=== PATIENT | female | born 1960 | race African-American/Black ===

== ENCOUNTER 2017-05-16 20:23 | Inpatient (IN) | payer OTHER ==
[2017-05-16 22:20] LABS: ADD MAN DIFF? NO
[2017-05-16 22:22] LABS: WHITE BLOOD COUNT 5.5 10^3/ul (4.8-10.8)
[2017-05-16 22:22] LABS: BASOPHILS % 0.7 % (0.0-2.0); EOSINOPHILS % 0.7 % (0.0-7.0); HEMATOCRIT 44.7 % (37.0-47.0); HEMOGLOBIN 13.9 g/dl (12.0-16.0); LYMPHOCYTES # 1.2 10^3/ul (0.8-2.9); LYMPHOCYTES % 21.3 % (15.0-51.0); MEAN CORPUSCULAR HEMOGLOBIN 26.8 pg (29.0-33.0); MEAN CORPUSCULAR HGB CONC 31.1 g/dl (32.0-37.0); MEAN CORPUSCULAR VOLUME 86.1 fl (82.0-101.0); MONOCYTE # 0.8 10^3/ul (0.3-0.9); MONOCYTES % 13.9 % (0.0-11.0); NEUTROPHIL # 3.4 10^3/ul (1.6-7.5); PLATELET COUNT 192 10^3/UL (140-415); RED BLOOD COUNT 5.19 10^6/ul (4.20-5.40); RED CELL DISTRIBUTION WIDTH 17.5 % (11.5-14.5)
[2017-05-16 23:03] LABS: ANION GAP 18 (8-16); BLOOD UREA NITROGEN 28 mg/dl (7-20); CALCIUM 9.7 mg/dl (8.4-10.2); CARBON DIOXIDE 29 mmol/L (21-31); CHLORIDE 99 mmol/L (97-110); CREATININE 1.46 mg/dl (0.44-1.00); GLUCOSE 102 mg/dl (70-220); POTASSIUM 4.4 mmol/L (3.5-5.1); SODIUM 142 mmol/L (135-144)
[2017-05-16] MEDS: ONDANSETRON 4 MG INJ IV (23:12)
[2017-05-16] MEDS: morphine 4 MG/ML VIAL IV (23:12)
[2017-05-16 23:15] LABS: B-TYPE NATRIURETIC PEPTIDE 13600 PG/ML (0-125); TROPONIN-I 0.016 ng/ml (0.00-0.12)
[2017-05-17] MEDS ORDERED: ACETAMINOPHEN 325 MG TAB PO (02:30)
[2017-05-17] MEDS ORDERED: ALBUTEROL/IPRATROPIUM (NEB) 3 ML AMP HHN (02:30)
[2017-05-17] MEDS ORDERED: CEPASTAT LOZENGE MT (02:30)
[2017-05-17] MEDS ORDERED: NACL 0.9% 3 ML SYG IV (02:30)
[2017-05-17] MEDS: morphine 2 MG INJ IV ×2 (02:42→23:16)
[2017-05-17] MEDS: LORAZEPAM 0.5 MG TAB PO ×2 (03:37→20:25)
[2017-05-17] MEDS: BUMETANIDE 0.5 MG TAB PO (06:22)
[2017-05-17 06:38] LABS: ADD MAN DIFF? NO
[2017-05-17 06:42] LABS: WHITE BLOOD COUNT 4.6 10^3/ul (4.8-10.8)
[2017-05-17 06:42] LABS: BASOPHILS % 0.7 % (0.0-2.0); EOSINOPHILS # 0.1 10^3/ul (0.0-0.5); EOSINOPHILS % 1.1 % (0.0-7.0); HEMATOCRIT 42.4 % (37.0-47.0); HEMOGLOBIN 12.9 g/dl (12.0-16.0); LYMPHOCYTES % 21.5 % (15.0-51.0); MEAN CORPUSCULAR HGB CONC 30.4 g/dl (32.0-37.0); MEAN CORPUSCULAR VOLUME 88.7 fl (82.0-101.0); MEAN PLATELET VOLUME 10.7 fl (7.4-10.4); MONOCYTE # 0.7 10^3/ul (0.3-0.9); MONOCYTES % 15.4 % (0.0-11.0); NEUTROPHIL # 2.8 10^3/ul (1.6-7.5); NEUTROPHILS % 61.1 % (39.0-77.0); PLATELET COUNT 166 10^3/UL (140-415); RED BLOOD COUNT 4.78 10^6/ul (4.20-5.40); RED CELL DISTRIBUTION WIDTH 17.2 % (11.5-14.5)
[2017-05-17 07:11] LABS: ALANINE AMINOTRANSFERASE 43 IU/L (13-69); ALBUMIN/GLOBULIN RATIO 1.66; ALKALINE PHOSPHATASE 77 IU/L (42-121); ANION GAP 14 (8-16); ASPARTATE AMINO TRANSFERASE 32 IU/L (15-46); BILIRUBIN,INDIRECT 1.2 mg/dl (0-1.1); BILIRUBIN,TOTAL 1.2 mg/dl (0.2-1.3); BLOOD UREA NITROGEN 28 mg/dl (7-20); CALCIUM 9.3 mg/dl (8.4-10.2); CARBON DIOXIDE 33 mmol/L (21-31); CHLORIDE 100 mmol/L (97-110); CREATININE 1.41 mg/dl (0.44-1.00); GLUCOSE 95 mg/dl (70-220); POTASSIUM 4.2 mmol/L (3.5-5.1); SODIUM 143 mmol/L (135-144); TOTAL PROTEIN 6.4 g/dl (6.1-8.1)
[2017-05-17] MEDS: SPIRONOLACTONE 25 MG TAB PO (08:27)
[2017-05-17] MEDS: ASPIRIN 81 MG TAB PO (08:30)
[2017-05-17] MEDS: HEPARIN 5,000 UNIT/0.5 ML VIAL SC ×2 (08:33→20:39)
[2017-05-17] MEDS ORDERED: BUMETANIDE 1 MG TAB NGT (09:00)
[2017-05-17] MEDS ORDERED: BUMETANIDE 0.5 MG TAB NGT (09:00)
[2017-05-17] MEDS: METHYLPREDNISOLONE 40 MG INJ IV (09:22)
[2017-05-17 16:17] LABS: CREATINE KINASE 72 IU/L (23-200)
[2017-05-17 16:30] LABS: CK INDEX 0.9; CK-MB 0.62 ng/ml (0.0-2.4)
[2017-05-17 16:37] LABS: TROPONIN-I < 0.012 ng/ml (0.00-0.12)
[2017-05-17] MEDS: FUROSEMIDE 20 MG INJ IV (17:37)
[2017-05-17] MEDS: morphine LIQ (10 MG/5 ML) CUP PO (19:40)
[2017-05-17] MEDS ORDERED: [UNRECOGNIZED DRUG - OTHER] XX (21:00)
[2017-05-17] MEDS ORDERED: SACUBITRIL XX (21:00)
[2017-05-17] MEDS ORDERED: VALSARTAN XX (21:00)
[2017-05-18] MEDS: FUROSEMIDE 20 MG INJ IV ×2 (06:26→17:15)
[2017-05-18 07:17] LABS: ADD MAN DIFF? NO
[2017-05-18 07:22] LABS: WHITE BLOOD COUNT 8.7 10^3/ul (4.8-10.8)
[2017-05-18 07:22] LABS: ABNORMAL IP MESSAGE 1; BASOPHILS % 0.1 % (0.0-2.0); HEMATOCRIT 42.5 % (37.0-47.0); LYMPHOCYTES # 0.5 10^3/ul (0.8-2.9); LYMPHOCYTES % 6.1 % (15.0-51.0); MEAN CORPUSCULAR HEMOGLOBIN 26.6 pg (29.0-33.0); MEAN CORPUSCULAR HGB CONC 30.6 g/dl (32.0-37.0); MEAN CORPUSCULAR VOLUME 87.1 fl (82.0-101.0); MEAN PLATELET VOLUME 10.6 fl (7.4-10.4); MONOCYTE # 0.7 10^3/ul (0.3-0.9); MONOCYTES % 7.6 % (0.0-11.0); NEUTROPHIL # 7.5 10^3/ul (1.6-7.5); NEUTROPHILS % 85.7 % (39.0-77.0); PLATELET COUNT 184 10^3/UL (140-415); RED BLOOD COUNT 4.88 10^6/ul (4.20-5.40); RED CELL DISTRIBUTION WIDTH 17.4 % (11.5-14.5)
[2017-05-18 07:34] LABS: POSITIVE DIFF @See below
[2017-05-18 07:45] LABS: ANION GAP 15 (8-16); BLOOD UREA NITROGEN 30 mg/dl (7-20); CALCIUM 9.4 mg/dl (8.4-10.2); CARBON DIOXIDE 33 mmol/L (21-31); CHLORIDE 97 mmol/L (97-110); CREATININE 1.29 mg/dl (0.44-1.00); GLUCOSE 115 mg/dl (70-220); MAGNESIUM 2.3 mg/dl (1.7-2.5); PHOSPHORUS 4.1 mg/dl (2.5-4.9); SODIUM 140 mmol/L (135-144)
[2017-05-18] MEDS: ASPIRIN 81 MG TAB PO (09:14)
[2017-05-18] MEDS: SPIRONOLACTONE 25 MG TAB PO (09:14)
[2017-05-18] MEDS: [UNRECOGNIZED DRUG - REMARK] XX ×2 (09:15→17:04)
[2017-05-18] MEDS: HEPARIN 5,000 UNIT/0.5 ML VIAL SC ×2 (09:37→21:09)
[2017-05-18 13:31] LABS: ADD UMIC NO; UR ASCORBIC ACID 40 mg/dL (NEGATIVE); UR BILIRUBIN (Dip) NEGATIVE (NEGATIVE); UR BLOOD (Dip) NEGATIVE (NEGATIVE); UR CLARITY CLEAR (CLEAR); UR COLOR YELLOW (YELLOW); UR GLUCOSE (Dip) NEGATIVE (NEGATIVE); UR KETONES (Dip) NEGATIVE (NEGATIVE); UR LEUKOCYTE ESTERASE (Dip) NEGATIVE Leu/ul (NEGATIVE); UR NITRITE (Dip) NEGATIVE (NEGATIVE); UR SPECIFIC GRAVITY (Dip) 1.015 (1.003-1.030); UR TOTAL PROTEIN (Dip) NEGATIVE (NEGATIVE); UR UROBILINOGEN (Dip) NEGATIVE (NEGATIVE)
[2017-05-18 13:37] LABS: CREATININE,URINE RANDOM 147.87 mg/dl (20-320)
[2017-05-18 13:45] LABS: SODIUM,URINE RANDOM < 13 mmol/L (30-90)
[2017-05-18] MEDS: ONDANSETRON 4 MG INJ IV (18:57)
[2017-05-18] MEDS: morphine 2 MG INJ IV (18:57)
[2017-05-18] MEDS: LORAZEPAM 2 MG INJ IV (21:29)
[2017-05-19] MEDS: [UNRECOGNIZED DRUG - REMARK] XX ×2 (00:30→08:30)
[2017-05-19] MEDS: FUROSEMIDE 20 MG INJ IV ×4 (06:26→21:26)
[2017-05-19] MEDS: morphine 2 MG INJ IV (06:28)
[2017-05-19 08:12] LABS: ADD MAN DIFF? NO
[2017-05-19 08:14] LABS: WHITE BLOOD COUNT 6.1 10^3/ul (4.8-10.8)
[2017-05-19 08:14] LABS: BASOPHILS % 0.5 % (0.0-2.0); EOSINOPHILS % 0.5 % (0.0-7.0); HEMATOCRIT 42.2 % (37.0-47.0); HEMOGLOBIN 12.8 g/dl (12.0-16.0); LYMPHOCYTES # 1.3 10^3/ul (0.8-2.9); LYMPHOCYTES % 20.7 % (15.0-51.0); MEAN CORPUSCULAR HEMOGLOBIN 26.8 pg (29.0-33.0); MEAN CORPUSCULAR HGB CONC 30.3 g/dl (32.0-37.0); MEAN CORPUSCULAR VOLUME 88.3 fl (82.0-101.0); MEAN PLATELET VOLUME 11.1 fl (7.4-10.4); MONOCYTE # 0.6 10^3/ul (0.3-0.9); MONOCYTES % 10.6 % (0.0-11.0); NEUTROPHIL # 4.1 10^3/ul (1.6-7.5); NEUTROPHILS % 67.5 % (39.0-77.0); PLATELET COUNT 194 10^3/UL (140-415); RED BLOOD COUNT 4.78 10^6/ul (4.20-5.40); RED CELL DISTRIBUTION WIDTH 17.7 % (11.5-14.5)
[2017-05-19 08:46] LABS: ANION GAP 17 (8-16); BLOOD UREA NITROGEN 30 mg/dl (7-20); CALCIUM 9.4 mg/dl (8.4-10.2); CARBON DIOXIDE 29 mmol/L (21-31); CHLORIDE 98 mmol/L (97-110); CREATININE 1.22 mg/dl (0.44-1.00); GLUCOSE 87 mg/dl (70-220); MAGNESIUM 2.4 mg/dl (1.7-2.5); PHOSPHORUS 3.7 mg/dl (2.5-4.9); POTASSIUM 4.3 mmol/L (3.5-5.1); SODIUM 140 mmol/L (135-144)
[2017-05-19] MEDS: ASPIRIN 81 MG TAB PO (09:16)
[2017-05-19] MEDS: SPIRONOLACTONE 25 MG TAB PO (09:17)
[2017-05-19] MEDS: HEPARIN 5,000 UNIT/0.5 ML VIAL SC ×2 (09:19→21:42)
[2017-05-19 14:07] LABS: CREATININE, RANDOM URINE 167 mg/dL (20-320); MICROALBUMIN 2.6 mg/dL; MICROALBUMIN/CREATININE RATIO 16 (<30)
[2017-05-19] MEDS: Sacubitril/Valsartan (Entresto 24 mg-26 mg Tablet) PO ×2 (16:47→21:00)
[2017-05-19] MEDS: SOD CHLORIDE 0.9% 250 ML IV (23:17)
[2017-05-19] MEDS: LORAZEPAM 2 MG INJ IV (23:18)
[2017-05-20] MEDS: LORAZEPAM 2 MG INJ IV ×2 (00:23)
[2017-05-20] MEDS: BUMETANIDE 0.5 MG TAB PO ×2 (06:12→11:01)
[2017-05-20 07:48] LABS: ADD MAN DIFF? NO
[2017-05-20 07:52] LABS: BASOPHILS % 0.9 % (0.0-2.0); EOSINOPHILS # 0.1 10^3/ul (0.0-0.5); EOSINOPHILS % 1.6 % (0.0-7.0); HEMATOCRIT 39.9 % (37.0-47.0); HEMOGLOBIN 12.2 g/dl (12.0-16.0); LYMPHOCYTES % 23.5 % (15.0-51.0); MEAN CORPUSCULAR HEMOGLOBIN 26.9 pg (29.0-33.0); MEAN CORPUSCULAR HGB CONC 30.6 g/dl (32.0-37.0); MEAN CORPUSCULAR VOLUME 88.1 fl (82.0-101.0); MEAN PLATELET VOLUME 10.6 fl (7.4-10.4); MONOCYTE # 0.7 10^3/ul (0.3-0.9); NEUTROPHIL # 2.4 10^3/ul (1.6-7.5); NEUTROPHILS % 56.5 % (39.0-77.0); PLATELET COUNT 175 10^3/UL (140-415); RED BLOOD COUNT 4.53 10^6/ul (4.20-5.40); RED CELL DISTRIBUTION WIDTH 17.4 % (11.5-14.5)
[2017-05-20 07:52] LABS: WHITE BLOOD COUNT 4.3 10^3/ul (4.8-10.8)
[2017-05-20 08:17] LABS: ANION GAP 15 (8-16); BLOOD UREA NITROGEN 28 mg/dl (7-20); CALCIUM 8.8 mg/dl (8.4-10.2); CARBON DIOXIDE 31 mmol/L (21-31); CHLORIDE 98 mmol/L (97-110); CREATININE 1.27 mg/dl (0.44-1.00); GLUCOSE 100 mg/dl (70-220); MAGNESIUM 2.1 mg/dl (1.7-2.5); PHOSPHORUS 3.6 mg/dl (2.5-4.9); SODIUM 140 mmol/L (135-144)
[2017-05-20] MEDS: ASPIRIN 81 MG TAB PO (10:30)
[2017-05-20] MEDS: SPIRONOLACTONE 25 MG TAB PO (10:31)
[2017-05-20] MEDS: Sacubitril/Valsartan (Entresto 24 mg-26 mg Tablet) PO (10:32)
[2017-05-20] MEDS: HEPARIN 5,000 UNIT/0.5 ML VIAL SC (11:05)
== END 2017-05-20 13:15 | disposition home or self-care (01) | DRG 291 ==
LOC: TEL 05-18 00:15 → E/R 20:23 → TEL 23:31
DX: I13.0 Hypertensive heart and chronic kidney disease with heart failure and stage 1 through stage 4 chronic kidney disease, or unspecified chronic kidney disease (principal); I50.23 Acute on chronic systolic (congestive) heart failure; N17.9 Acute kidney failure, unspecified; I95.9 Hypotension, unspecified; I27.20 Pulmonary hypertension, unspecified; I42.9 Cardiomyopathy, unspecified; I07.1 Rheumatic tricuspid insufficiency; N18.9 Chronic kidney disease, unspecified; J44.9 Chronic obstructive pulmonary disease, unspecified; I34.0 Nonrheumatic mitral (valve) insufficiency; I35.1 Nonrheumatic aortic (valve) insufficiency; Z95.810 Presence of automatic (implantable) cardiac defibrillator; Z87.891 Personal history of nicotine dependence
CPT/HCPCS: 36415; 71045; 80048; 80053; 81003; 82043; 82550; 82553; 83735; 83880; 84100; 84155; 84300; 84484; 85025; 87400; 93005; 93306; 94060; 94640; 94726; 94729; 96374; 96375; 99285-25; J1940

== ENCOUNTER 2017-06-14 10:37 | Inpatient (IN) | payer OTHER ==
[2017-06-14] MEDS: ALBUTEROL 0.5% (NEB) 2.5 MG/0.5 ML AMP INH (11:25)
[2017-06-14 11:39] LABS: ADD MAN DIFF? NO
[2017-06-14 11:42] LABS: WHITE BLOOD COUNT 5.1 10^3/ul (4.8-10.8)
[2017-06-14 11:42] LABS: BASOPHILS % 0.8 % (0.0-2.0); EOSINOPHILS # 0.1 10^3/ul (0.0-0.5); EOSINOPHILS % 1.4 % (0.0-7.0); HEMATOCRIT 46.6 % (37.0-47.0); HEMOGLOBIN 14.6 g/dl (12.0-16.0); LYMPHOCYTES # 0.9 10^3/ul (0.8-2.9); LYMPHOCYTES % 18.4 % (15.0-51.0); MEAN CORPUSCULAR HEMOGLOBIN 27.1 pg (29.0-33.0); MEAN CORPUSCULAR HGB CONC 31.3 g/dl (32.0-37.0); MEAN CORPUSCULAR VOLUME 86.5 fl (82.0-101.0); MEAN PLATELET VOLUME 10.7 fl (7.4-10.4); MONOCYTE # 0.7 10^3/ul (0.3-0.9); MONOCYTES % 13.1 % (0.0-11.0); NEUTROPHIL # 3.4 10^3/ul (1.6-7.5); NEUTROPHILS % 66.1 % (39.0-77.0); PLATELET COUNT 244 10^3/UL (140-415); RED BLOOD COUNT 5.39 10^6/ul (4.20-5.40); RED CELL DISTRIBUTION WIDTH 16.2 % (11.5-14.5)
[2017-06-14 12:03] LABS: ALANINE AMINOTRANSFERASE 27 IU/L (13-69); ALBUMIN 4.4 g/dl (3.3-4.9); ALBUMIN/GLOBULIN RATIO 1.37; ALKALINE PHOSPHATASE 90 IU/L (42-121); ASPARTATE AMINO TRANSFERASE 26 IU/L (15-46); BILIRUBIN,INDIRECT 1.2 mg/dl (0-1.1); BILIRUBIN,TOTAL 1.2 mg/dl (0.2-1.3); BLOOD UREA NITROGEN 20 mg/dl (7-20); CALCIUM 9.4 mg/dl (8.4-10.2); CARBON DIOXIDE 32 mmol/L (21-31); CHLORIDE 98 mmol/L (97-110); CREATININE 1.19 mg/dl (0.44-1.00); GLUCOSE 107 mg/dl (70-220); SODIUM 142 mmol/L (135-144); TOTAL PROTEIN 7.6 g/dl (6.1-8.1)
[2017-06-14 12:11] LABS: B-TYPE NATRIURETIC PEPTIDE 12900 PG/ML (0-125); TROPONIN-I 0.117 ng/ml (0.00-0.12)
[2017-06-14 12:13] LABS: ANION GAP 16 (8-16); POTASSIUM 4.2 mmol/L (3.5-5.1)
[2017-06-14] MEDS: FUROSEMIDE 40 MG INJ IV (14:29)
[2017-06-14] MEDS ORDERED: ACETAMINOPHEN 325 MG TAB PO ×2 (14:30→16:30)
[2017-06-14] MEDS ORDERED: ONDANSETRON 4 MG INJ IV (14:30)
[2017-06-14] MEDS ORDERED: NACL 0.9% 3 ML SYG IV (16:30)
[2017-06-14] MEDS: DOCUSATE SODIUM 100 MG CAP PO (16:30)
[2017-06-14] MEDS ORDERED: CEPASTAT LOZENGE MT (16:30)
[2017-06-14] MEDS ORDERED: ZOLPIDEM 5 MG TAB PO (16:30)
[2017-06-14 17:00] LABS: CREATINE KINASE 74 IU/L (23-200)
[2017-06-14] MEDS: SACUBITRIL XX (17:00)
[2017-06-14] MEDS: VALSARTAN XX (17:00)
[2017-06-14] MEDS: LEVOFLOXACIN 500 MG TAB PO (17:02)
[2017-06-14 17:12] LABS: CK INDEX 0.6; CK-MB 0.42 ng/ml (0.0-2.4)
[2017-06-14] MEDS: ALBUTEROL 0.083% (NEB) 2.5 MG/3 ML AMP HHN (18:11)
[2017-06-14] MEDS: BUMETANIDE 1 MG INJ IV (18:12)
[2017-06-14] MEDS: LORAZEPAM 2 MG INJ IV (20:59)
[2017-06-14] MEDS ORDERED: VALSARTAN PO (21:00)
[2017-06-14] MEDS ORDERED: SACUBITRIL PO (21:00)
[2017-06-15] MEDS: SACUBITRIL XX ×3 (01:00→17:00)
[2017-06-15] MEDS: VALSARTAN XX ×3 (01:00→17:00)
[2017-06-15] MEDS: ALBUTEROL 0.083% (NEB) 2.5 MG/3 ML AMP HHN ×5 (02:17→20:12)
[2017-06-15] MEDS: BUMETANIDE 1 MG INJ IV ×2 (05:10→17:31)
[2017-06-15] MEDS: LEVOFLOXACIN 500 MG TAB PO (05:10)
[2017-06-15] MEDS ORDERED: ASPIRIN 81 MG TAB PO (09:00)
[2017-06-15] MEDS: ASPIRIN 81 MG TAB PO (09:38)
[2017-06-15] MEDS: SPIRONOLACTONE 25 MG TAB PO (09:38)
[2017-06-15] MEDS: DOCUSATE SODIUM 100 MG CAP PO ×2 (09:38→21:03)
[2017-06-15] MEDS: SACUBITRIL PO ×2 (09:39→21:04)
[2017-06-15] MEDS: VALSARTAN PO ×2 (09:39→21:04)
[2017-06-15] MEDS: ENOXAPARIN 40 MG/0.4 ML SYG SC (09:41)
[2017-06-15] MEDS: GUAIFENESIN LA 600 MG TABSR PO ×2 (12:41→21:03)
[2017-06-15] MEDS: GUAIFENESIN/CODEINE 5ML CUP PO (16:39)
[2017-06-15] MEDS: ONDANSETRON 4 MG INJ IV (18:59)
[2017-06-15] MEDS: HYDROCODONE/APAP (5/325) TAB PO (19:00)
[2017-06-16] MEDS: LORAZEPAM 0.5 MG TAB PO ×2 (00:37→20:45)
[2017-06-16] MEDS: ALBUTEROL 0.083% (NEB) 2.5 MG/3 ML AMP HHN ×4 (02:58→19:09)
[2017-06-16] MEDS: GUAIFENESIN/CODEINE 5ML CUP PO (03:43)
[2017-06-16] MEDS: SOD CHLORIDE 0.9% 250 ML IV (03:56)
[2017-06-16 05:16] LABS: ADD MAN DIFF? NO
[2017-06-16 05:19] LABS: WHITE BLOOD COUNT 5.1 10^3/ul (4.8-10.8)
[2017-06-16 05:19] LABS: BASOPHILS % 0.6 % (0.0-2.0); EOSINOPHILS # 0.1 10^3/ul (0.0-0.5); HEMATOCRIT 42.7 % (37.0-47.0); HEMOGLOBIN 13.3 g/dl (12.0-16.0); LYMPHOCYTES % 19.8 % (15.0-51.0); MEAN CORPUSCULAR HEMOGLOBIN 27.1 pg (29.0-33.0); MEAN CORPUSCULAR HGB CONC 31.1 g/dl (32.0-37.0); MEAN CORPUSCULAR VOLUME 87.1 fl (82.0-101.0); MEAN PLATELET VOLUME 10.2 fl (7.4-10.4); MONOCYTE # 0.7 10^3/ul (0.3-0.9); MONOCYTES % 14.4 % (0.0-11.0); NEUTROPHIL # 3.2 10^3/ul (1.6-7.5); PLATELET COUNT 189 10^3/UL (140-415); RED CELL DISTRIBUTION WIDTH 16.1 % (11.5-14.5)
[2017-06-16 05:52] LABS: ANION GAP 15 (8-16); BLOOD UREA NITROGEN 20 mg/dl (7-20); CALCIUM 9.2 mg/dl (8.4-10.2); CARBON DIOXIDE 32 mmol/L (21-31); CHLORIDE 98 mmol/L (97-110); CREATININE 1.37 mg/dl (0.44-1.00); GLUCOSE 94 mg/dl (70-220); POTASSIUM 3.9 mmol/L (3.5-5.1); SODIUM 141 mmol/L (135-144)
[2017-06-16] MEDS: BUMETANIDE 1 MG INJ IV (05:57)
[2017-06-16] MEDS: LEVOFLOXACIN 500 MG TAB PO (05:58)
[2017-06-16] MEDS: VALSARTAN PO ×2 (09:00→20:35)
[2017-06-16] MEDS: SACUBITRIL PO ×2 (09:00→20:35)
[2017-06-16] MEDS: SPIRONOLACTONE 25 MG TAB PO (09:42)
[2017-06-16] MEDS: DOCUSATE SODIUM 100 MG CAP PO ×2 (09:51→20:34)
[2017-06-16] MEDS: ASPIRIN 81 MG TAB PO (09:52)
[2017-06-16] MEDS: GUAIFENESIN LA 600 MG TABSR PO ×2 (09:52→20:35)
[2017-06-16] MEDS: ENOXAPARIN 40 MG/0.4 ML SYG SC (09:58)
[2017-06-16 12:48] LABS: ADD UMIC NO; UR ASCORBIC ACID 40 mg/dL (NEGATIVE); UR BILIRUBIN (Dip) NEGATIVE (NEGATIVE); UR BLOOD (Dip) NEGATIVE (NEGATIVE); UR CLARITY CLEAR (CLEAR); UR COLOR YELLOW (YELLOW); UR GLUCOSE (Dip) NEGATIVE (NEGATIVE); UR KETONES (Dip) NEGATIVE (NEGATIVE); UR LEUKOCYTE ESTERASE (Dip) NEGATIVE Leu/ul (NEGATIVE); UR NITRITE (Dip) NEGATIVE (NEGATIVE); UR SPECIFIC GRAVITY (Dip) 1.024 (1.003-1.030); UR TOTAL PROTEIN (Dip) NEGATIVE (NEGATIVE); UR UROBILINOGEN (Dip) 1+ mg/dL (NEGATIVE)
[2017-06-16 13:27] LABS: CREATININE,URINE RANDOM 245.03 mg/dl (20-320)
[2017-06-16 13:27] LABS: SODIUM,URINE RANDOM 19 mmol/L (30-90)
[2017-06-16] MEDS: BUMETANIDE 1 MG TAB PO (13:29)
[2017-06-16 13:38] LABS: PROTEIN URINE < 5.0 mg/dl (0.0-11.9)
[2017-06-16] MEDS: HYDROCODONE/APAP (5/325) TAB PO (20:45)
[2017-06-17] MEDS: ALBUTEROL 0.083% (NEB) 2.5 MG/3 ML AMP HHN ×3 (02:08→14:33)
[2017-06-17] MEDS: LEVOFLOXACIN 500 MG TAB PO (05:02)
[2017-06-17] MEDS: BUMETANIDE 0.5 MG TAB PO (05:02)
[2017-06-17 06:33] LABS: ADD MAN DIFF? NO
[2017-06-17 06:46] LABS: BASOPHILS % 0.5 % (0.0-2.0); EOSINOPHILS # 0.1 10^3/ul (0.0-0.5); EOSINOPHILS % 2.5 % (0.0-7.0); HEMOGLOBIN 12.7 g/dl (12.0-16.0); LYMPHOCYTES # 0.9 10^3/ul (0.8-2.9); LYMPHOCYTES % 19.3 % (15.0-51.0); MEAN CORPUSCULAR HEMOGLOBIN 27.3 pg (29.0-33.0); MEAN PLATELET VOLUME 10.4 fl (7.4-10.4); MONOCYTE # 0.6 10^3/ul (0.3-0.9); MONOCYTES % 14.5 % (0.0-11.0); NEUTROPHIL # 2.8 10^3/ul (1.6-7.5); PLATELET COUNT 173 10^3/UL (140-415); RED BLOOD COUNT 4.66 10^6/ul (4.20-5.40); RED CELL DISTRIBUTION WIDTH 16.1 % (11.5-14.5)
[2017-06-17 06:46] LABS: WHITE BLOOD COUNT 4.4 10^3/ul (4.8-10.8)
[2017-06-17 06:59] LABS: MAGNESIUM 2.1 mg/dl (1.7-2.5)
[2017-06-17 07:03] LABS: ANION GAP 15 (8-16); BLOOD UREA NITROGEN 17 mg/dl (7-20); CARBON DIOXIDE 33 mmol/L (21-31); CHLORIDE 98 mmol/L (97-110); CREATININE 1.15 mg/dl (0.44-1.00); GLUCOSE 86 mg/dl (70-220); POTASSIUM 4.1 mmol/L (3.5-5.1); SODIUM 142 mmol/L (135-144)
[2017-06-17] MEDS: DOCUSATE SODIUM 100 MG CAP PO (08:59)
[2017-06-17] MEDS: GUAIFENESIN LA 600 MG TABSR PO (08:59)
[2017-06-17] MEDS: SACUBITRIL PO (09:00)
[2017-06-17] MEDS: VALSARTAN PO (09:00)
[2017-06-17] MEDS: ASPIRIN 81 MG TAB PO (09:00)
[2017-06-17] MEDS: ENOXAPARIN 40 MG/0.4 ML SYG SC (09:04)
[2017-06-17] MEDS: LORAZEPAM 2 MG INJ IV (11:31)
[2017-06-17] MEDS: SPIRONOLACTONE 25 MG TAB PO (11:31)
[2017-06-18 14:31] LABS: CREATININE, RANDOM URINE 236 mg/dL (20-320); MICROALBUMIN 2.4 mg/dL; MICROALBUMIN/CREATININE RATIO 10 (<30)
== END 2017-06-17 17:00 | disposition home or self-care (01) | DRG 292 ==
LOC: E/R 10:37 → MS3 14:29
DX: I50.23 Acute on chronic systolic (congestive) heart failure (principal); I13.0 Hypertensive heart and chronic kidney disease with heart failure and stage 1 through stage 4 chronic kidney disease, or unspecified chronic kidney disease; I42.9 Cardiomyopathy, unspecified; N17.9 Acute kidney failure, unspecified; Z95.0 Presence of cardiac pacemaker; Z87.891 Personal history of nicotine dependence; I27.20 Pulmonary hypertension, unspecified; J20.9 Acute bronchitis, unspecified; N18.3 Chronic kidney disease, stage 3 (moderate); Z76.82 Awaiting organ transplant status; I95.9 Hypotension, unspecified
CPT/HCPCS: 36415; 71045; 80048; 80053; 81003; 82043; 82550; 82553; 83735; 83880; 84155; 84300; 84484; 85025; 93005; 94640; 94644; 94664; 96374; 96375; 97161; 99285-25

== ENCOUNTER 2017-07-02 11:32 | Observation (INO) | payer OTHER ==
[2017-07-02] MEDS: ONDANSETRON 4 MG INJ IV (12:26)
[2017-07-02] MEDS: FUROSEMIDE 40 MG INJ IV (12:26)
[2017-07-02] MEDS: LORAZEPAM 2 MG INJ IV (12:26)
[2017-07-02 12:44] LABS: ADD MAN DIFF? NO
[2017-07-02 12:49] LABS: WHITE BLOOD COUNT 5.2 10^3/ul (4.8-10.8)
[2017-07-02 12:49] LABS: BASOPHILS % 0.6 % (0.0-2.0); EOSINOPHILS # 0.1 10^3/ul (0.0-0.5); EOSINOPHILS % 1.4 % (0.0-7.0); HEMATOCRIT 43.8 % (37.0-47.0); HEMOGLOBIN 13.7 g/dl (12.0-16.0); LYMPHOCYTES # 0.8 10^3/ul (0.8-2.9); LYMPHOCYTES % 15.9 % (15.0-51.0); MEAN CORPUSCULAR HEMOGLOBIN 26.9 pg (29.0-33.0); MEAN CORPUSCULAR HGB CONC 31.3 g/dl (32.0-37.0); MEAN CORPUSCULAR VOLUME 85.9 fl (82.0-101.0); MEAN PLATELET VOLUME 11.6 fl (7.4-10.4); MONOCYTE # 0.5 10^3/ul (0.3-0.9); MONOCYTES % 10.3 % (0.0-11.0); NEUTROPHIL # 3.7 10^3/ul (1.6-7.5); NEUTROPHILS % 71.4 % (39.0-77.0); PLATELET COUNT 183 10^3/UL (140-415); RED CELL DISTRIBUTION WIDTH 15.6 % (11.5-14.5)
[2017-07-02 13:07] LABS: ANION GAP 18 (8-16); BLOOD UREA NITROGEN 26 mg/dl (7-20); CALCIUM 9.9 mg/dl (8.4-10.2); CARBON DIOXIDE 30 mmol/L (21-31); CHLORIDE 101 mmol/L (97-110); GLUCOSE 102 mg/dl (70-220); POTASSIUM 4.7 mmol/L (3.5-5.1); SODIUM 144 mmol/L (135-144)
[2017-07-02 13:18] LABS: TROPONIN-I 0.014 ng/ml (0.00-0.12)
[2017-07-02 13:21] LABS: INR 1.27; PROTIME 16.1 Sec (11.9-14.9); PT RATIO 1.3
[2017-07-02 13:22] LABS: PARTIAL THROMBOPLASTIN TIME 31.1 Sec (25.0-35.0)
[2017-07-02] MEDS ORDERED: NITROGLYCERIN (SL) 0.4 MG TAB SL (16:00)
[2017-07-02] MEDS ORDERED: ONDANSETRON 4 MG INJ IV (16:00)
[2017-07-02] MEDS ORDERED: NACL 0.9% 3 ML SYG IV (16:00)
[2017-07-02] MEDS ORDERED: DOCUSATE SODIUM 100 MG CAP PO (16:00)
[2017-07-02] MEDS ORDERED: ACETAMINOPHEN 325 MG TAB PO (16:00)
[2017-07-02 18:16] LABS: CREATINE KINASE 52 IU/L (23-200)
[2017-07-02 18:29] LABS: CK-MB 0.51 ng/ml (0.0-2.4); TROPONIN-I 0.014 ng/ml (0.00-0.12)
[2017-07-02] MEDS: FAMOTIDINE 20 MG TAB PO (20:44)
[2017-07-02] MEDS: SACUBITRIL PO (21:00)
[2017-07-02] MEDS: VALSARTAN PO (21:00)
[2017-07-02] MEDS: ALBUMIN HUMAN 25% 100 ML IV (21:26)
[2017-07-02] MEDS: LORAZEPAM 0.5 MG TAB PO (23:33)
[2017-07-02] MEDS: GUAIFENESIN/CODEINE 5ML CUP PO (23:51)
[2017-07-03 01:34] LABS: CREATINE KINASE 41 IU/L (23-200)
[2017-07-03 01:47] LABS: CK INDEX 0.9; CK-MB 0.37 ng/ml (0.0-2.4); TROPONIN-I 0.014 ng/ml (0.00-0.12)
[2017-07-03 06:17] LABS: ADD MAN DIFF? NO
[2017-07-03 06:23] LABS: BASOPHILS % 0.7 % (0.0-2.0); EOSINOPHILS # 0.1 10^3/ul (0.0-0.5); EOSINOPHILS % 2.3 % (0.0-7.0); HEMATOCRIT 41.1 % (37.0-47.0); HEMOGLOBIN 12.8 g/dl (12.0-16.0); LYMPHOCYTES # 1.1 10^3/ul (0.8-2.9); LYMPHOCYTES % 24.6 % (15.0-51.0); MEAN CORPUSCULAR HEMOGLOBIN 27.2 pg (29.0-33.0); MEAN CORPUSCULAR HGB CONC 31.1 g/dl (32.0-37.0); MEAN CORPUSCULAR VOLUME 87.4 fl (82.0-101.0); MEAN PLATELET VOLUME 11.4 fl (7.4-10.4); MONOCYTE # 0.5 10^3/ul (0.3-0.9); MONOCYTES % 12.6 % (0.0-11.0); NEUTROPHIL # 2.5 10^3/ul (1.6-7.5); NEUTROPHILS % 59.6 % (39.0-77.0); PLATELET COUNT 160 10^3/UL (140-415); RED CELL DISTRIBUTION WIDTH 15.2 % (11.5-14.5)
[2017-07-03 06:23] LABS: WHITE BLOOD COUNT 4.3 10^3/ul (4.8-10.8)
[2017-07-03 06:52] LABS: ANION GAP 17 (8-16); BLOOD UREA NITROGEN 24 mg/dl (7-20); CALCIUM 9.4 mg/dl (8.4-10.2); CARBON DIOXIDE 30 mmol/L (21-31); CHLORIDE 102 mmol/L (97-110); CREATININE 1.28 mg/dl (0.44-1.00); GLUCOSE 102 mg/dl (70-220); MAGNESIUM 2.2 mg/dl (1.7-2.5); POTASSIUM 4.1 mmol/L (3.5-5.1); SODIUM 145 mmol/L (135-144)
[2017-07-03] MEDS ORDERED: SACUBITRIL PO (09:00)
[2017-07-03] MEDS: FUROSEMIDE 20 MG INJ IV ×2 (09:00→09:12)
[2017-07-03] MEDS ORDERED: VALSARTAN PO (09:00)
[2017-07-03] MEDS: FAMOTIDINE 20 MG TAB PO (09:04)
[2017-07-03] MEDS: ASPIRIN 81 MG TAB PO (09:04)
[2017-07-03] MEDS: SPIRONOLACTONE 25 MG TAB PO (09:04)
== END 2017-07-03 10:51 | disposition home or self-care (01) ==
LOC: E/R 11:32 → MS3 14:01
DX: I13.0 Hypertensive heart and chronic kidney disease with heart failure and stage 1 through stage 4 chronic kidney disease, or unspecified chronic kidney disease (principal); I50.23 Acute on chronic systolic (congestive) heart failure; I42.9 Cardiomyopathy, unspecified; I27.20 Pulmonary hypertension, unspecified; N18.9 Chronic kidney disease, unspecified; F41.9 Anxiety disorder, unspecified; I08.0 Rheumatic disorders of both mitral and aortic valves; R10.9 Unspecified abdominal pain; R11.10 Vomiting, unspecified; Z95.810 Presence of automatic (implantable) cardiac defibrillator
CPT/HCPCS: 36415; 71045; 80048; 82550; 82553; 83735; 84484; 85025; 85610; 85730; 93005; 96374; 96375; 99217; 99285-25

== ENCOUNTER 2017-12-28 07:07 | Day surgery (SDC) | payer OTHER ==
[~2017-12-28 07:07] MED LIST: CEFAZOLIN 1 GM INJ; LACTATED RINGER'S 1,000 ML (ENTER RATE) IV*
[2017-12-28 08:07] LABS: ADD MAN DIFF? NO
[2017-12-28 08:09] LABS: BASOPHILS % 0.3 % (0.0-2.0); EOSINOPHILS # 0.1 10^3/ul (0.0-0.5); EOSINOPHILS % 1.4 % (0.0-7.0); HEMATOCRIT 37.5 % (37.0-47.0); LYMPHOCYTES # 0.7 10^3/ul (0.8-2.9); LYMPHOCYTES % 20.9 % (15.0-51.0); MEAN CORPUSCULAR HEMOGLOBIN 29.8 pg (29.0-33.0); MEAN CORPUSCULAR VOLUME 93.1 fl (82.0-101.0); MEAN PLATELET VOLUME 11.2 fl (7.4-10.4); MONOCYTE # 0.4 10^3/ul (0.3-0.9); MONOCYTES % 12.1 % (0.0-11.0); NEUTROPHIL # 2.3 10^3/ul (1.6-7.5); PLATELET COUNT 168 10^3/UL (140-415); RED BLOOD COUNT 4.03 10^6/ul (4.20-5.40); RED CELL DISTRIBUTION WIDTH 12.9 % (11.5-14.5)
[2017-12-28 08:09] LABS: WHITE BLOOD COUNT 3.5 10^3/ul (4.8-10.8)
[2017-12-28] MEDS ORDERED: LIDOCAINE 1%/EPI 30 ML INJ (08:39)
[2017-12-28 08:53] LABS: HOLD TRANSMISSIONS 1
[2017-12-28] MEDS ORDERED: LABETALOL HCL 20MG INJ IV (10:00)
[2017-12-28] MEDS ORDERED: MEPERIDINE 25 MG INJ IV (10:00)
[2017-12-28] MEDS ORDERED: ALBUTEROL 0.083% (NEB) 2.5 MG/3 ML AMP HHN (10:00)
[2017-12-28] MEDS ORDERED: OXYCODONE/ACETAMINOPHEN (5/325) TAB PO ×2 (10:00)
[2017-12-28] MEDS ORDERED: FENTAnyl 50 MCG/ML VIAL IV ×3 (10:00)
[2017-12-28] MEDS ORDERED: MIDAZOLAM 1 MG/ML 2 ML INJ IV (10:00)
[2017-12-28] MEDS ORDERED: HYDROmorphONE 1 MG/5 ML IV SYRINGE IV ×3 (10:00)
[2017-12-28] MEDS ORDERED: EPHEDrine SULFATE 50 MG/5 ML SYG IV (10:00)
[2017-12-28] MEDS ORDERED: IPRATROPIUM (NEB) 0.5 MG/2.5 ML AMP HHN (10:00)
[2017-12-28] MEDS ORDERED: hydrALAzine 20 MG INJ IV (10:00)
[2017-12-28] MEDS ORDERED: ONDANSETRON 4 MG INJ IV (10:00)
[2017-12-28] MEDS ORDERED: TRIMETHOBENZAMIDE 100 MG/ML VIAL IM (10:00)
[2017-12-28] MEDS ORDERED: FENTAnyl 50 MCG/ML VIAL (10:04)
[2017-12-28] MEDS ORDERED: MIDAZOLAM 1 MG/ML 2 ML INJ (10:04)
[2017-12-28] MEDS ORDERED: ONDANSETRON 4 MG INJ (10:04)
[2017-12-28] MEDS: LIDOCAINE 1% (MDV) 20 ML INJ (10:54)
[2017-12-28] MEDS: FERRIC SUBSULFATE 8 GM VIAL TOP (11:00)
[2017-12-28] MEDS: DIPHENHYDRAMINE 50 MG INJ IV (11:31)
== END 2017-12-28 15:55 | disposition home or self-care (01) ==
LOC: SDS 07:07
DX: N87.9 Dysplasia of cervix uteri, unspecified (principal)
CPT/HCPCS: 57522; 71045; 85025; 86850; 86900; 86901; 88305; 93005

== ENCOUNTER 2018-02-14 07:53 | Inpatient (IN) | payer OTHER ==
[2018-02-14] MEDS ORDERED: NITROGLYCERIN (SL) 0.4 MG TAB SL (08:30)
[2018-02-14 08:54] LABS: ADD MAN DIFF? NO
[2018-02-14] MEDS: FUROSEMIDE 40 MG INJ IV (08:57)
[2018-02-14 09:00] LABS: WHITE BLOOD COUNT 6.3 10^3/ul (4.8-10.8)
[2018-02-14 09:00] LABS: ABNORMAL IP MESSAGE 1; BASOPHILS % 0.6 % (0.0-2.0); EOSINOPHILS # 0.2 10^3/ul (0.0-0.5); EOSINOPHILS % 3.2 % (0.0-7.0); HEMATOCRIT 39.4 % (37.0-47.0); HEMOGLOBIN 12.4 g/dl (12.0-16.0); LYMPHOCYTES # 0.6 10^3/ul (0.8-2.9); LYMPHOCYTES % 8.7 % (15.0-51.0); MEAN CORPUSCULAR HEMOGLOBIN 28.4 pg (29.0-33.0); MEAN CORPUSCULAR HGB CONC 31.5 g/dl (32.0-37.0); MEAN CORPUSCULAR VOLUME 90.4 fl (82.0-101.0); MEAN PLATELET VOLUME 10.6 fl (7.4-10.4); MONOCYTE # 0.6 10^3/ul (0.3-0.9); MONOCYTES % 9.1 % (0.0-11.0); NEUTROPHIL # 4.9 10^3/ul (1.6-7.5); NEUTROPHILS % 78.1 % (39.0-77.0); PLATELET COUNT 170 10^3/UL (140-415); RED BLOOD COUNT 4.36 10^6/ul (4.20-5.40); RED CELL DISTRIBUTION WIDTH 14.2 % (11.5-14.5)
[2018-02-14] MEDS: ASPIRIN 81 MG TAB PO (09:00)
[2018-02-14] MEDS: NITROGLYCERIN 2% 1 GM OINT PKT TD (09:01)
[2018-02-14 09:05] LABS: POSITIVE DIFF @See below
[2018-02-14 09:18] LABS: ANION GAP 12 (5-13); BLOOD UREA NITROGEN 33 mg/dl (7-20); CALCIUM 9.1 mg/dl (8.4-10.2); CARBON DIOXIDE 28 mmol/L (21-31); CHLORIDE 100 mmol/L (97-110); CREATININE 2.32 mg/dl (0.44-1.00); Estimated GFR 26 mL/min (>60); GLUCOSE 102 mg/dl (70-220); POTASSIUM 3.7 mmol/L (3.5-5.1); SODIUM 140 mmol/L (135-144)
[2018-02-14 09:29] LABS: TROPONIN-I 0.039 ng/ml (0.000-0.120)
[2018-02-14 09:55] LABS: CREATINE KINASE 62 IU/L (23-200)
[2018-02-14 10:08] LABS: CK INDEX 0.8; CK-MB 0.51 ng/ml (0.0-2.4); TROPONIN-I 0.034 ng/ml (0.000-0.120)
[2018-02-14] MEDS ORDERED: ACETAMINOPHEN 325 MG TAB PO (11:00)
[2018-02-14] MEDS ORDERED: ONDANSETRON 4 MG INJ IV (11:00)
[2018-02-14] MEDS ORDERED: NACL 0.9% 3 ML SYG IV (13:00)
[2018-02-14] MEDS: ONDANSETRON 4 MG INJ IV (13:35)
[2018-02-14] MEDS: morphine 2 MG INJ IV (13:35)
[2018-02-14] MEDS ORDERED: HEPARIN 5,000 UNIT/0.5 ML VIAL ×2 (13:42→20:28)
[2018-02-14] MEDS: HEPARIN 5,000 UNIT/1 ML VIAL SC ×2 (13:54→21:22)
[2018-02-14] MEDS ORDERED: SPIRONOLACTONE 25 MG TAB PO (14:00)
[2018-02-14 14:20] LABS: HEMOGLOBIN A1C 5.4 % (0-5.9)
[2018-02-14 14:32] LABS: ADD UMIC YES; UR ASCORBIC ACID NEGATIVE (NEGATIVE); UR BACTERIA FEW /HPF (NONE SEEN); UR BILIRUBIN (Dip) NEGATIVE (NEGATIVE); UR BLOOD (Dip) 1+ mg/dL (NEGATIVE); UR CLARITY SLIGHTLY CLOUDY (CLEAR); UR COLOR YELLOW (YELLOW); UR GLUCOSE (Dip) NEGATIVE (NEGATIVE); UR KETONES (Dip) NEGATIVE (NEGATIVE); UR LEUKOCYTE ESTERASE (Dip) NEGATIVE Leu/ul (NEGATIVE); UR NITRITE (Dip) NEGATIVE (NEGATIVE); UR RBC 3 /HPF (0-5); UR SQUAMOUS EPITHELIAL CELL FEW /HPF (FEW); UR TOTAL PROTEIN (Dip) NEGATIVE (NEGATIVE); UR UROBILINOGEN (Dip) NEGATIVE (NEGATIVE); UR WBC 19 /HPF (0-5)
[2018-02-14 15:10] LABS: CREATININE,URINE RANDOM 96.43 mg/dl (20-320)
[2018-02-14 15:10] LABS: SODIUM,URINE RANDOM 87 mmol/L (30-90)
[2018-02-14 15:36] LABS: B-TYPE NATRIURETIC PEPTIDE 21100 PG/ML (0-125)
[2018-02-14 17:37] LABS: CREATINE KINASE 52 IU/L (23-200)
[2018-02-14 17:50] LABS: CK INDEX 0.9; CK-MB 0.47 ng/ml (0.0-2.4); TROPONIN-I 0.045 ng/ml (0.000-0.120)
[2018-02-14] MEDS: HYDROCODONE/APAP (5/325) TAB PO (18:12)
[2018-02-14] MEDS: LORAZEPAM 0.5 MG TAB PO (21:21)
[2018-02-15] MEDS: HEPARIN 5,000 UNIT/1 ML VIAL SC ×3 (06:00→21:22)
[2018-02-15 06:16] LABS: ADD MAN DIFF? NO
[2018-02-15 06:20] LABS: BASOPHILS % 0.7 % (0.0-2.0); EOSINOPHILS # 0.2 10^3/ul (0.0-0.5); EOSINOPHILS % 4.8 % (0.0-7.0); HEMATOCRIT 37.2 % (37.0-47.0); HEMOGLOBIN 11.5 g/dl (12.0-16.0); LYMPHOCYTES # 0.7 10^3/ul (0.8-2.9); LYMPHOCYTES % 14.7 % (15.0-51.0); MEAN CORPUSCULAR HEMOGLOBIN 28.5 pg (29.0-33.0); MEAN CORPUSCULAR HGB CONC 30.9 g/dl (32.0-37.0); MEAN CORPUSCULAR VOLUME 92.1 fl (82.0-101.0); MEAN PLATELET VOLUME 11.1 fl (7.4-10.4); MONOCYTE # 0.5 10^3/ul (0.3-0.9); MONOCYTES % 11.9 % (0.0-11.0); NEUTROPHIL # 3.1 10^3/ul (1.6-7.5); NEUTROPHILS % 67.2 % (39.0-77.0); PLATELET COUNT 151 10^3/UL (140-415); RED BLOOD COUNT 4.04 10^6/ul (4.20-5.40); RED CELL DISTRIBUTION WIDTH 14.1 % (11.5-14.5)
[2018-02-15 06:20] LABS: WHITE BLOOD COUNT 4.6 10^3/ul (4.8-10.8)
[2018-02-15 07:05] LABS: CHOL/HDL RATIO 4.2 RATIO; CHOLESTEROL 144 mg/dl (100-200); HDL CHOLESTEROL 34 mg/dl (37-92); LDL CHOLESTEROL,CALCULATED 87 mg/dl; MAGNESIUM 2.2 mg/dl (1.7-2.5); TRIGLYCERIDES 113 mg/dl (0-149)
[2018-02-15 07:05] LABS: PHOSPHORUS 5.4 mg/dl (2.5-4.9)
[2018-02-15 07:19] LABS: ALANINE AMINOTRANSFERASE 29 IU/L (13-69); ALBUMIN 3.5 g/dl (3.3-4.9); ALBUMIN/GLOBULIN RATIO 1.29; ALKALINE PHOSPHATASE 78 IU/L (42-121); ANION GAP 11 (5-13); ASPARTATE AMINO TRANSFERASE 20 IU/L (15-46); BILIRUBIN,INDIRECT 0.6 mg/dl (0-1.1); BILIRUBIN,TOTAL 0.6 mg/dl (0.2-1.3); BLOOD UREA NITROGEN 33 mg/dl (7-20); CALCIUM 8.6 mg/dl (8.4-10.2); CARBON DIOXIDE 30 mmol/L (21-31); CHLORIDE 100 mmol/L (97-110); CREATININE 2.68 mg/dl (0.44-1.00); Estimated GFR 22 mL/min (>60); GLUCOSE 92 mg/dl (70-220); POTASSIUM 3.7 mmol/L (3.5-5.1); SODIUM 141 mmol/L (135-144); TOTAL PROTEIN 6.2 g/dl (6.1-8.1)
[2018-02-15] MEDS: morphine 2 MG INJ IV ×3 (08:22→21:16)
[2018-02-15] MEDS ORDERED: BUMETANIDE 1 MG TAB PO (09:00)
[2018-02-15] MEDS: ASPIRIN (EC) 81 MG TAB PO ×2 (11:23→12:56)
[2018-02-15] MEDS: BUMETANIDE 1 MG INJ IV (12:55)
[2018-02-15 15:21] LABS: CREATININE, RANDOM URINE 96 mg/dL (20-275); MICROALBUMIN 6.3 mg/dL; MICROALBUMIN/CREATININE RATIO 66 (<30)
[2018-02-15] MEDS ORDERED: HEPARIN 5,000 UNIT/0.5 ML VIAL (21:14)
[2018-02-16] MEDS: ACETAMINOPHEN 325 MG TAB PO (00:21)
[2018-02-16] MEDS: HYDROmorphONE 0.5 MG/0.5 ML SYG IV (00:59)
[2018-02-16] MEDS ORDERED: HEPARIN 5,000 UNIT/0.5 ML VIAL (05:34)
[2018-02-16 06:35] LABS: ADD MAN DIFF? NO
[2018-02-16] MEDS: HEPARIN 5,000 UNIT/1 ML VIAL SC (06:35)
[2018-02-16 06:41] LABS: WHITE BLOOD COUNT 4.6 10^3/ul (4.8-10.8)
[2018-02-16 06:41] LABS: BASOPHILS % 0.6 % (0.0-2.0); EOSINOPHILS # 0.2 10^3/ul (0.0-0.5); HEMATOCRIT 37.8 % (37.0-47.0); HEMOGLOBIN 11.5 g/dl (12.0-16.0); LYMPHOCYTES # 0.9 10^3/ul (0.8-2.9); LYMPHOCYTES % 18.3 % (15.0-51.0); MEAN CORPUSCULAR HEMOGLOBIN 28.2 pg (29.0-33.0); MEAN CORPUSCULAR HGB CONC 30.4 g/dl (32.0-37.0); MEAN CORPUSCULAR VOLUME 92.6 fl (82.0-101.0); MONOCYTE # 0.6 10^3/ul (0.3-0.9); MONOCYTES % 12.3 % (0.0-11.0); NEUTROPHILS % 63.6 % (39.0-77.0); PLATELET COUNT 157 10^3/UL (140-415); RED BLOOD COUNT 4.08 10^6/ul (4.20-5.40); RED CELL DISTRIBUTION WIDTH 14.3 % (11.5-14.5)
[2018-02-16 07:21] LABS: ANION GAP 11 (5-13); BLOOD UREA NITROGEN 37 mg/dl (7-20); CALCIUM 8.9 mg/dl (8.4-10.2); CARBON DIOXIDE 30 mmol/L (21-31); CHLORIDE 98 mmol/L (97-110); CREATININE 2.46 mg/dl (0.44-1.00); Estimated GFR 25 mL/min (>60); GLUCOSE 91 mg/dl (70-220); MAGNESIUM 2.2 mg/dl (1.7-2.5); PHOSPHORUS 5.7 mg/dl (2.5-4.9); POTASSIUM 4.2 mmol/L (3.5-5.1); SODIUM 139 mmol/L (135-144)
[2018-02-16] MEDS: BUMETANIDE 1 MG INJ IV (08:56)
[2018-02-16] MEDS: ASPIRIN (EC) 81 MG TAB PO (08:58)
[2018-02-16] MEDS: morphine 2 MG INJ IV (11:12)
== END 2018-02-16 14:43 | disposition home or self-care (01) | DRG 291 ==
LOC: E/R 07:53 → TEL 11:22
PROVIDERS: Family Medicine
DX: I13.0 Hypertensive heart and chronic kidney disease with heart failure and stage 1 through stage 4 chronic kidney disease, or unspecified chronic kidney disease (principal); I50.23 Acute on chronic systolic (congestive) heart failure; N17.9 Acute kidney failure, unspecified; N18.3 Chronic kidney disease, stage 3 (moderate); I27.20 Pulmonary hypertension, unspecified; E66.9 Obesity, unspecified; Z68.32 Body mass index [BMI] 32.0-32.9, adult; I42.9 Cardiomyopathy, unspecified; Z95.810 Presence of automatic (implantable) cardiac defibrillator; Z91.11 Patient's noncompliance with dietary regimen; S89.92XA Unspecified injury of left lower leg, initial encounter; V19.9XXA Pedal cyclist (driver) (passenger) injured in unspecified traffic accident, initial encounter
CPT/HCPCS: 36415; 71045; 73562; 73700; 80048; 80053; 80061; 81001; 81003; 82043; 82550; 82553; 83036; 83735; 83880; 84100; 84155; 84300; 84484; 85025; 93005; 96374; 99285-25

== ENCOUNTER 2018-02-22 08:37 | Inpatient (IN) | payer OTHER ==
[2018-02-22 09:39] LABS: ADD MAN DIFF? NO
[2018-02-22 09:46] LABS: BASOPHILS % 0.6 % (0.0-2.0); EOSINOPHILS # 0.1 10^3/ul (0.0-0.5); EOSINOPHILS % 2.1 % (0.0-7.0); HEMATOCRIT 39.1 % (37.0-47.0); LYMPHOCYTES # 0.7 10^3/ul (0.8-2.9); LYMPHOCYTES % 14.8 % (15.0-51.0); MEAN CORPUSCULAR HEMOGLOBIN 27.9 pg (29.0-33.0); MEAN CORPUSCULAR HGB CONC 30.7 g/dl (32.0-37.0); MEAN CORPUSCULAR VOLUME 90.9 fl (82.0-101.0); MEAN PLATELET VOLUME 11.1 fl (7.4-10.4); MONOCYTE # 0.5 10^3/ul (0.3-0.9); MONOCYTES % 9.6 % (0.0-11.0); NEUTROPHIL # 3.5 10^3/ul (1.6-7.5); NEUTROPHILS % 72.7 % (39.0-77.0); PLATELET COUNT 214 10^3/UL (140-415); RED CELL DISTRIBUTION WIDTH 14.7 % (11.5-14.5)
[2018-02-22 09:46] LABS: WHITE BLOOD COUNT 4.8 10^3/ul (4.8-10.8)
[2018-02-22] MEDS: morphine 4 MG/ML VIAL IV (09:51)
[2018-02-22] MEDS: ONDANSETRON 4 MG INJ IV (09:51)
[2018-02-22] MEDS: FUROSEMIDE 40 MG INJ IV ×2 (09:53→17:47)
[2018-02-22 10:07] LABS: ALANINE AMINOTRANSFERASE 36 IU/L (13-69); ALBUMIN 4.4 g/dl (3.3-4.9); ALBUMIN/GLOBULIN RATIO 1.69; ALKALINE PHOSPHATASE 77 IU/L (42-121); ANION GAP 9 (5-13); ASPARTATE AMINO TRANSFERASE 38 IU/L (15-46); BILIRUBIN,INDIRECT 0.6 mg/dl (0-1.1); BILIRUBIN,TOTAL 0.6 mg/dl (0.2-1.3); BLOOD UREA NITROGEN 32 mg/dl (7-20); CALCIUM 9.1 mg/dl (8.4-10.2); CARBON DIOXIDE 33 mmol/L (21-31); CHLORIDE 99 mmol/L (97-110); CREATININE 1.86 mg/dl (0.44-1.00); Estimated GFR 34 mL/min (>60); GLUCOSE 97 mg/dl (70-220); POTASSIUM 4.3 mmol/L (3.5-5.1); SODIUM 141 mmol/L (135-144)
[2018-02-22 10:16] LABS: B-TYPE NATRIURETIC PEPTIDE 15400 PG/ML (0-125); TROPONIN-I 0.017 ng/ml (0.000-0.120)
[2018-02-22] MEDS ORDERED: ACETAMINOPHEN 325 MG TAB PO ×2 (14:00→14:30)
[2018-02-22] MEDS ORDERED: ONDANSETRON 4 MG INJ IV ×2 (14:00→14:30)
[2018-02-22] MEDS ORDERED: NACL 0.9% 3 ML SYG IV (14:30)
[2018-02-22] MEDS ORDERED: DOCUSATE SODIUM 100 MG CAP PO (14:30)
[2018-02-22] MEDS ORDERED: NA PHOSPHATE/BIPHOS 133 ML ENEMA PR (14:30)
[2018-02-22] MEDS ORDERED: NITROGLYCERIN (SL) 0.4 MG TAB SL (14:30)
[2018-02-22] MEDS ORDERED: LORAZEPAM 2 MG INJ IV (14:30)
[2018-02-22] MEDS ORDERED: MAGNESIUM HYDROXIDE 30ML CUP PO (14:30)
[2018-02-22] MEDS ORDERED: HYDROCODONE/APAP (5/325) TAB PO (14:30)
[2018-02-22] MEDS ORDERED: ALBUTEROL/IPRATROPIUM (NEB) 3 ML AMP HHN (14:30)
[2018-02-22] MEDS ORDERED: hydrALAzine 20 MG INJ IV (14:30)
[2018-02-22 14:54] LABS: FREE T4 (FREE THYROXINE) 1.35 ng/dl (0.64-1.79)
[2018-02-22 18:43] LABS: ADD UMIC NO; UR ASCORBIC ACID NEGATIVE (NEGATIVE); UR BILIRUBIN (Dip) NEGATIVE (NEGATIVE); UR BLOOD (Dip) NEGATIVE (NEGATIVE); UR CLARITY CLEAR (CLEAR); UR COLOR YELLOW (YELLOW); UR GLUCOSE (Dip) NEGATIVE (NEGATIVE); UR KETONES (Dip) NEGATIVE (NEGATIVE); UR LEUKOCYTE ESTERASE (Dip) NEGATIVE Leu/ul (NEGATIVE); UR NITRITE (Dip) NEGATIVE (NEGATIVE); UR TOTAL PROTEIN (Dip) NEGATIVE (NEGATIVE); UR UROBILINOGEN (Dip) NEGATIVE (NEGATIVE)
[2018-02-22 19:23] LABS: TROPONIN-I 0.035 ng/ml (0.000-0.120)
[2018-02-22] MEDS: morphine 2 MG INJ IV (19:47)
[2018-02-22] MEDS: METOLAZONE 5 MG TAB PO (23:02)
[2018-02-23] MEDS: morphine 2 MG INJ IV ×4 (01:22→23:32)
[2018-02-23 05:31] LABS: ADD MAN DIFF? NO
[2018-02-23 05:40] LABS: WHITE BLOOD COUNT 4.8 10^3/ul (4.8-10.8)
[2018-02-23 05:40] LABS: BASOPHILS % 0.6 % (0.0-2.0); EOSINOPHILS # 0.2 10^3/ul (0.0-0.5); EOSINOPHILS % 3.2 % (0.0-7.0); HEMATOCRIT 36.8 % (37.0-47.0); HEMOGLOBIN 11.4 g/dl (12.0-16.0); LYMPHOCYTES # 0.9 10^3/ul (0.8-2.9); LYMPHOCYTES % 18.7 % (15.0-51.0); MEAN CORPUSCULAR HEMOGLOBIN 28.4 pg (29.0-33.0); MEAN CORPUSCULAR VOLUME 91.8 fl (82.0-101.0); MONOCYTE # 0.6 10^3/ul (0.3-0.9); MONOCYTES % 12.4 % (0.0-11.0); NEUTROPHIL # 3.1 10^3/ul (1.6-7.5); NEUTROPHILS % 64.9 % (39.0-77.0); PLATELET COUNT 191 10^3/UL (140-415); RED BLOOD COUNT 4.01 10^6/ul (4.20-5.40); RED CELL DISTRIBUTION WIDTH 14.6 % (11.5-14.5)
[2018-02-23 05:54] LABS: HEMOGLOBIN A1C 5.5 % (0-5.9)
[2018-02-23 06:07] LABS: CHOLESTEROL 129 mg/dl (100-200)
[2018-02-23 06:07] LABS: CHOL/HDL RATIO 3.9 RATIO; HDL CHOLESTEROL 33 mg/dl (37-92); LDL CHOLESTEROL,CALCULATED 72 mg/dl; TRIGLYCERIDES 120 mg/dl (0-149)
[2018-02-23 06:17] LABS: ANION GAP 9 (5-13); BLOOD UREA NITROGEN 29 mg/dl (7-20); CALCIUM 8.9 mg/dl (8.4-10.2); CARBON DIOXIDE 36 mmol/L (21-31); CHLORIDE 94 mmol/L (97-110); CREATININE 1.79 mg/dl (0.44-1.00); Estimated GFR 35 mL/min (>60); GLUCOSE 109 mg/dl (70-220); MAGNESIUM 1.9 mg/dl (1.7-2.5); PHOSPHORUS 4.8 mg/dl (2.5-4.9); POTASSIUM 3.9 mmol/L (3.5-5.1); SODIUM 139 mmol/L (135-144)
[2018-02-23] MEDS: PANTOPRAZOLE (EC) 40 MG TAB PO (06:43)
[2018-02-23] MEDS: FUROSEMIDE 20 MG INJ IV ×2 (06:43→17:35)
[2018-02-23] MEDS ORDERED: BUMETANIDE 1 MG TAB PO (09:00)
[2018-02-23] MEDS: ASPIRIN (EC) 81 MG TAB PO (09:44)
[2018-02-23] MEDS: ACETAZOLAMIDE 500 MG INJ IV (10:56)
[2018-02-23 11:48] LABS: ADD UMIC YES; UR ASCORBIC ACID NEGATIVE (NEGATIVE); UR BILIRUBIN (Dip) NEGATIVE (NEGATIVE); UR BLOOD (Dip) NEGATIVE (NEGATIVE); UR CLARITY CLEAR (CLEAR); UR COLOR STRAW (YELLOW); UR GLUCOSE (Dip) NEGATIVE (NEGATIVE); UR KETONES (Dip) NEGATIVE (NEGATIVE); UR LEUKOCYTE ESTERASE (Dip) TRACE Leu/ul (NEGATIVE); UR NITRITE (Dip) NEGATIVE (NEGATIVE); UR RBC 0 /HPF (0-5); UR SPECIFIC GRAVITY (Dip) 1.006 (1.003-1.030); UR TOTAL PROTEIN (Dip) NEGATIVE (NEGATIVE); UR UROBILINOGEN (Dip) NEGATIVE (NEGATIVE); UR WBC 4 /HPF (0-5)
[2018-02-23 12:00] LABS: SODIUM,URINE RANDOM 138 mmol/L (30-90)
[2018-02-23 12:00] LABS: CREATININE,URINE RANDOM 28.26 mg/dl (20-320)
[2018-02-23] MEDS: LORAZEPAM 0.5 MG TAB PO (16:37)
[2018-02-24] MEDS: PANTOPRAZOLE (EC) 40 MG TAB PO (06:03)
[2018-02-24] MEDS: FUROSEMIDE 20 MG INJ IV ×2 (06:03→18:32)
[2018-02-24] MEDS: LIDOCAINE 5% PATCH TD (06:06)
[2018-02-24] MEDS: morphine 2 MG INJ IV ×3 (06:15→20:09)
[2018-02-24 06:19] LABS: ADD MAN DIFF? NO
[2018-02-24 06:23] LABS: BASOPHILS % 0.8 % (0.0-2.0); EOSINOPHILS # 0.1 10^3/ul (0.0-0.5); EOSINOPHILS % 2.7 % (0.0-7.0); HEMOGLOBIN 12.1 g/dl (12.0-16.0); LYMPHOCYTES # 0.8 10^3/ul (0.8-2.9); MEAN CORPUSCULAR HEMOGLOBIN 27.8 pg (29.0-33.0); MEAN CORPUSCULAR VOLUME 89.7 fl (82.0-101.0); MEAN PLATELET VOLUME 10.7 fl (7.4-10.4); MONOCYTE # 0.6 10^3/ul (0.3-0.9); MONOCYTES % 12.7 % (0.0-11.0); NEUTROPHIL # 3.3 10^3/ul (1.6-7.5); NEUTROPHILS % 67.6 % (39.0-77.0); PLATELET COUNT 194 10^3/UL (140-415); RED BLOOD COUNT 4.35 10^6/ul (4.20-5.40); RED CELL DISTRIBUTION WIDTH 14.7 % (11.5-14.5)
[2018-02-24 06:23] LABS: WHITE BLOOD COUNT 4.9 10^3/ul (4.8-10.8)
[2018-02-24 06:39] LABS: ANION GAP 10 (5-13); BLOOD UREA NITROGEN 28 mg/dl (7-20); CALCIUM 9.8 mg/dl (8.4-10.2); CARBON DIOXIDE 36 mmol/L (21-31); CHLORIDE 91 mmol/L (97-110); CREATININE 1.59 mg/dl (0.44-1.00); Estimated GFR 41 mL/min (>60); GLUCOSE 92 mg/dl (70-220); POTASSIUM 3.4 mmol/L (3.5-5.1); SODIUM 137 mmol/L (135-144)
[2018-02-24] MEDS: POTASSIUM CHLORIDE (SR) 20 MEQ TAB PO (08:55)
[2018-02-24] MEDS: ASPIRIN (EC) 81 MG TAB PO (08:55)
[2018-02-24 10:23] LABS: MAGNESIUM 2.1 mg/dl (1.7-2.5)
[2018-02-24] MEDS: ACETAZOLAMIDE 500 MG INJ IV (10:41)
[2018-02-24] MEDS: CITALOPRAM 20 MG TAB PO (12:26)
[2018-02-24 15:52] LABS: CREATININE, RANDOM URINE 28 mg/dL (20-275); MICROALBUMIN <0.2 mg/dL; MICROALBUMIN/CREATININE RATIO NOTE (<30)
[2018-02-25 05:31] LABS: ADD MAN DIFF? NO
[2018-02-25 05:34] LABS: BASOPHIL # 0.1 10^3/ul (0.0-0.1); EOSINOPHILS # 0.2 10^3/ul (0.0-0.5); EOSINOPHILS % 3.4 % (0.0-7.0); HEMATOCRIT 39.6 % (37.0-47.0); HEMOGLOBIN 12.3 g/dl (12.0-16.0); LYMPHOCYTES # 0.8 10^3/ul (0.8-2.9); LYMPHOCYTES % 15.5 % (15.0-51.0); MEAN CORPUSCULAR HEMOGLOBIN 27.7 pg (29.0-33.0); MEAN CORPUSCULAR HGB CONC 31.1 g/dl (32.0-37.0); MEAN CORPUSCULAR VOLUME 89.2 fl (82.0-101.0); MEAN PLATELET VOLUME 10.6 fl (7.4-10.4); MONOCYTE # 0.8 10^3/ul (0.3-0.9); MONOCYTES % 14.5 % (0.0-11.0); NEUTROPHIL # 3.4 10^3/ul (1.6-7.5); NEUTROPHILS % 65.4 % (39.0-77.0); PLATELET COUNT 215 10^3/UL (140-415); RED BLOOD COUNT 4.44 10^6/ul (4.20-5.40); RED CELL DISTRIBUTION WIDTH 14.6 % (11.5-14.5)
[2018-02-25 05:34] LABS: WHITE BLOOD COUNT 5.2 10^3/ul (4.8-10.8)
[2018-02-25] MEDS: PANTOPRAZOLE (EC) 40 MG TAB PO (06:10)
[2018-02-25] MEDS: FUROSEMIDE 20 MG INJ IV (06:12)
[2018-02-25 06:25] LABS: ANION GAP 12 (5-13); BLOOD UREA NITROGEN 29 mg/dl (7-20); CALCIUM 9.6 mg/dl (8.4-10.2); CARBON DIOXIDE 32 mmol/L (21-31); CHLORIDE 94 mmol/L (97-110); CREATININE 1.54 mg/dl (0.44-1.00); Estimated GFR 42 mL/min (>60); GLUCOSE 105 mg/dl (70-220); POTASSIUM 3.7 mmol/L (3.5-5.1); SODIUM 138 mmol/L (135-144)
[2018-02-25] MEDS: LORAZEPAM 0.5 MG TAB PO (07:20)
[2018-02-25] MEDS: ASPIRIN (EC) 81 MG TAB PO (08:38)
[2018-02-25] MEDS: CITALOPRAM 20 MG TAB PO (08:38)
[2018-02-25] MEDS: morphine 2 MG INJ IV (08:39)
[2018-02-25] MEDS: ACETAZOLAMIDE 250 MG TAB PO (10:31)
== END 2018-02-25 13:20 | disposition home or self-care (01) | DRG 682 ==
LOC: E/R 08:37 → 6WM 13:43
DX: N17.9 Acute kidney failure, unspecified (principal); I50.23 Acute on chronic systolic (congestive) heart failure; E87.3 Alkalosis; I42.9 Cardiomyopathy, unspecified; I13.0 Hypertensive heart and chronic kidney disease with heart failure and stage 1 through stage 4 chronic kidney disease, or unspecified chronic kidney disease; I27.20 Pulmonary hypertension, unspecified; F32.9 Major depressive disorder, single episode, unspecified; N18.3 Chronic kidney disease, stage 3 (moderate); D64.9 Anemia, unspecified; Z79.82 Long term (current) use of aspirin; Z95.810 Presence of automatic (implantable) cardiac defibrillator
CPT/HCPCS: 36415; 71045; 80048; 80053; 80061; 81001; 81003; 82043; 83036; 83735; 83880; 84100; 84155; 84300; 84439; 84443; 84484; 85025; 87086; 93005; 93306; 96374; 96375; 97162; 97166; 99285-25

== ENCOUNTER 2018-06-20 09:10 | Inpatient (IN) | payer MEDICARE, OTHER ==
[2018-06-20] MEDS ORDERED: NITROGLYCERIN 2% 1 GM OINT PKT TD (09:38)
[2018-06-20] MEDS ORDERED: NITROGLYCERIN (SL) 0.4 MG TAB SL (10:00)
[2018-06-20 10:03] LABS: ADD MAN DIFF? NO
[2018-06-20 10:04] LABS: WHITE BLOOD COUNT 4.6 10^3/ul (4.8-10.8)
[2018-06-20 10:04] LABS: BASOPHILS % 0.4 % (0.0-2.0); EOSINOPHILS % 0.7 % (0.0-7.0); HEMATOCRIT 41.7 % (37.0-47.0); HEMOGLOBIN 12.7 g/dl (12.0-16.0); LYMPHOCYTES # 0.8 10^3/ul (0.8-2.9); LYMPHOCYTES % 16.5 % (15.0-51.0); MEAN CORPUSCULAR HEMOGLOBIN 27.4 pg (29.0-33.0); MEAN CORPUSCULAR HGB CONC 30.5 g/dl (32.0-37.0); MEAN CORPUSCULAR VOLUME 90.1 fl (82.0-101.0); MEAN PLATELET VOLUME 10.7 fl (7.4-10.4); MONOCYTE # 0.6 10^3/ul (0.3-0.9); MONOCYTES % 12.8 % (0.0-11.0); NEUTROPHIL # 3.2 10^3/ul (1.6-7.5); NEUTROPHILS % 69.4 % (39.0-77.0); PLATELET COUNT 177 10^3/UL (140-415); RED BLOOD COUNT 4.63 10^6/ul (4.20-5.40); RED CELL DISTRIBUTION WIDTH 15.5 % (11.5-14.5)
[2018-06-20] MEDS: FUROSEMIDE 40 MG INJ IV (10:07)
[2018-06-20] MEDS: ASPIRIN 325 MG TAB PO (10:07)
[2018-06-20 10:34] LABS: ANION GAP 10 (5-13); BLOOD UREA NITROGEN 23 mg/dl (7-20); CALCIUM 9.6 mg/dl (8.4-10.2); CARBON DIOXIDE 31 mmol/L (21-31); CHLORIDE 99 mmol/L (97-110); CREATININE 1.21 mg/dl (0.44-1.00); Estimated GFR 55 mL/min (>60); GLUCOSE 98 mg/dl (70-220); SODIUM 140 mmol/L (135-144)
[2018-06-20 10:46] LABS: TROPONIN-I 0.035 ng/ml (0.000-0.120)
[2018-06-20] MEDS ORDERED: ONDANSETRON 4 MG INJ IV ×2 (12:30→15:30)
[2018-06-20] MEDS ORDERED: ACETAMINOPHEN 325 MG TAB PO (12:30)
[2018-06-20] MEDS ORDERED: LORAZEPAM 0.5 MG TAB PO (15:30)
[2018-06-20] MEDS ORDERED: NACL 0.9% 3 ML SYG IV (15:30)
[2018-06-20 15:50] LABS: HEMOGLOBIN A1C 5.6 % (0-5.9)
[2018-06-20 15:51] LABS: CREATINE KINASE 58 IU/L (23-200)
[2018-06-20 16:02] LABS: B-TYPE NATRIURETIC PEPTIDE 11800 PG/ML (0-125)
[2018-06-20 16:04] LABS: CK INDEX 0.8; CK-MB 0.44 ng/ml (0.0-2.4); TROPONIN-I 0.026 ng/ml (0.000-0.120)
[2018-06-20] MEDS: BUMETANIDE 1 MG INJ IV ×2 (18:12→21:18)
[2018-06-20] MEDS: LORAZEPAM 0.5 MG TAB PO (18:51)
[2018-06-20] MEDS: ALBUTEROL/IPRATROPIUM (NEB) 3 ML AMP HHN (20:22)
[2018-06-20] MEDS: GUAIFENESIN/DM 5ML CUP PO (21:16)
[2018-06-20] MEDS: SACUBITRIL/VALSARTAN (49mg-51mg) TABLET PO (21:18)
[2018-06-20] MEDS: HEPARIN 5,000 UNIT/1 ML VIAL SC (21:28)
[2018-06-20 21:56] LABS: CREATINE KINASE 148 IU/L (23-200)
[2018-06-20 22:09] LABS: CK INDEX 0.4; CK-MB 0.62 ng/ml (0.0-2.4); TROPONIN-I 0.026 ng/ml (0.000-0.120)
[2018-06-21] MEDS: GUAIFENESIN/DM 5ML CUP PO (01:20)
[2018-06-21] MEDS: LORAZEPAM 2 MG INJ IV ×2 (01:20→12:47)
[2018-06-21] MEDS: ALBUTEROL/IPRATROPIUM (NEB) 3 ML AMP HHN ×4 (01:28→20:18)
[2018-06-21] MEDS: BENZONATATE 100 MG CAP PO (02:48)
[2018-06-21] MEDS: BUMETANIDE 1 MG INJ IV ×2 (05:42→18:07)
[2018-06-21] MEDS: ACETAMINOPHEN 325 MG TAB PO ×2 (05:45→11:18)
[2018-06-21] MEDS: HEPARIN 5,000 UNIT/1 ML VIAL SC ×3 (05:51→20:48)
[2018-06-21 06:29] LABS: ADD MAN DIFF? NO
[2018-06-21 06:39] LABS: WHITE BLOOD COUNT 6.9 10^3/ul (4.8-10.8)
[2018-06-21 06:39] LABS: BASOPHILS % 0.6 % (0.0-2.0); EOSINOPHILS % 0.6 % (0.0-7.0); HEMATOCRIT 41.8 % (37.0-47.0); HEMOGLOBIN 12.9 g/dl (12.0-16.0); LYMPHOCYTES # 1.1 10^3/ul (0.8-2.9); LYMPHOCYTES % 15.3 % (15.0-51.0); MEAN CORPUSCULAR HEMOGLOBIN 27.5 pg (29.0-33.0); MEAN CORPUSCULAR HGB CONC 30.9 g/dl (32.0-37.0); MEAN CORPUSCULAR VOLUME 89.1 fl (82.0-101.0); MEAN PLATELET VOLUME 11.5 fl (7.4-10.4); MONOCYTE # 0.9 10^3/ul (0.3-0.9); MONOCYTES % 13.6 % (0.0-11.0); NEUTROPHIL # 4.8 10^3/ul (1.6-7.5); NEUTROPHILS % 69.6 % (39.0-77.0); PLATELET COUNT 191 10^3/UL (140-415); RED BLOOD COUNT 4.69 10^6/ul (4.20-5.40); RED CELL DISTRIBUTION WIDTH 15.6 % (11.5-14.5)
[2018-06-21 07:04] LABS: CHOL/HDL RATIO 3.6 RATIO; CHOLESTEROL 138 mg/dl (100-200); HDL CHOLESTEROL 38 mg/dl (37-92); LDL CHOLESTEROL,CALCULATED 82 mg/dl; MAGNESIUM 2.1 mg/dl (1.7-2.5); TRIGLYCERIDES 91 mg/dl (0-149)
[2018-06-21 07:04] LABS: PHOSPHORUS 3.9 mg/dl (2.5-4.9)
[2018-06-21 07:09] LABS: ALANINE AMINOTRANSFERASE 33 IU/L (13-69); ALBUMIN 4.3 g/dl (3.3-4.9); ALBUMIN/GLOBULIN RATIO 1.43; ALKALINE PHOSPHATASE 123 IU/L (42-121); ANION GAP 12 (5-13); ASPARTATE AMINO TRANSFERASE 30 IU/L (15-46); BILIRUBIN,INDIRECT 1.8 mg/dl (0-1.1); BILIRUBIN,TOTAL 1.8 mg/dl (0.2-1.3); BLOOD UREA NITROGEN 24 mg/dl (7-20); CALCIUM 9.8 mg/dl (8.4-10.2); CARBON DIOXIDE 29 mmol/L (21-31); CHLORIDE 99 mmol/L (97-110); Estimated GFR 51 mL/min (>60); GLUCOSE 96 mg/dl (70-220); POTASSIUM 4.1 mmol/L (3.5-5.1); SODIUM 140 mmol/L (135-144); TOTAL PROTEIN 7.3 g/dl (6.1-8.1)
[2018-06-21 07:10] LABS: B-TYPE NATRIURETIC PEPTIDE 10000 PG/ML (0-125)
[2018-06-21] MEDS: ASPIRIN (EC) 81 MG TAB PO (09:24)
[2018-06-21] MEDS: SACUBITRIL/VALSARTAN (49mg-51mg) TABLET PO ×2 (09:24→20:35)
[2018-06-21] MEDS: SPIRONOLACTONE 25 MG TAB PO (09:24)
[2018-06-21] MEDS: METHYLPREDNISOLONE 125 MG INJ IV (12:39)
[2018-06-21] MEDS: METOLAZONE 2.5 MG TAB PO (17:36)
[2018-06-22] MEDS: ALBUTEROL/IPRATROPIUM (NEB) 3 ML AMP HHN ×4 (02:18→20:04)
[2018-06-22 05:23] LABS: ADD MAN DIFF? NO
[2018-06-22 05:24] LABS: ABNORMAL IP MESSAGE 1; BASOPHILS % 0.1 % (0.0-2.0); HEMATOCRIT 39.2 % (37.0-47.0); HEMOGLOBIN 12.2 g/dl (12.0-16.0); LYMPHOCYTES # 0.4 10^3/ul (0.8-2.9); LYMPHOCYTES % 4.4 % (15.0-51.0); MEAN CORPUSCULAR HEMOGLOBIN 27.5 pg (29.0-33.0); MEAN CORPUSCULAR HGB CONC 31.1 g/dl (32.0-37.0); MEAN CORPUSCULAR VOLUME 88.5 fl (82.0-101.0); MONOCYTE # 0.5 10^3/ul (0.3-0.9); MONOCYTES % 5.4 % (0.0-11.0); NEUTROPHIL # 7.4 10^3/ul (1.6-7.5); NEUTROPHILS % 89.6 % (39.0-77.0); PLATELET COUNT 178 10^3/UL (140-415); RED BLOOD COUNT 4.43 10^6/ul (4.20-5.40)
[2018-06-22 05:24] LABS: WHITE BLOOD COUNT 8.3 10^3/ul (4.8-10.8)
[2018-06-22 05:42] LABS: POSITIVE DIFF @See below
[2018-06-22 06:02] LABS: ANION GAP 9 (5-13); BLOOD UREA NITROGEN 24 mg/dl (7-20); CALCIUM 9.6 mg/dl (8.4-10.2); CARBON DIOXIDE 31 mmol/L (21-31); CHLORIDE 98 mmol/L (97-110); CREATININE 1.14 mg/dl (0.44-1.00); Estimated GFR 59 mL/min (>60); GLUCOSE 146 mg/dl (70-220); POTASSIUM 3.6 mmol/L (3.5-5.1); SODIUM 138 mmol/L (135-144)
[2018-06-22 06:03] LABS: MAGNESIUM 2.2 mg/dl (1.7-2.5)
[2018-06-22 06:19] LABS: PHOSPHORUS 3.9 mg/dl (2.5-4.9)
[2018-06-22 07:18] LABS: ADD UMIC NO; UR ASCORBIC ACID 20 mg/dL (NEGATIVE); UR BILIRUBIN (Dip) NEGATIVE (NEGATIVE); UR BLOOD (Dip) NEGATIVE (NEGATIVE); UR CLARITY CLEAR (CLEAR); UR COLOR YELLOW (YELLOW); UR GLUCOSE (Dip) NEGATIVE (NEGATIVE); UR KETONES (Dip) NEGATIVE (NEGATIVE); UR LEUKOCYTE ESTERASE (Dip) NEGATIVE Leu/ul (NEGATIVE); UR NITRITE (Dip) NEGATIVE (NEGATIVE); UR SPECIFIC GRAVITY (Dip) 1.011 (1.003-1.030); UR TOTAL PROTEIN (Dip) NEGATIVE (NEGATIVE); UR UROBILINOGEN (Dip) NEGATIVE (NEGATIVE)
[2018-06-22 07:45] LABS: SODIUM,URINE RANDOM 137 mmol/L (30-90)
[2018-06-22] MEDS: SPIRONOLACTONE 25 MG TAB PO (09:19)
[2018-06-22] MEDS: ASPIRIN (EC) 81 MG TAB PO (09:19)
[2018-06-22] MEDS: SACUBITRIL/VALSARTAN (49mg-51mg) TABLET PO ×2 (09:20→20:48)
[2018-06-22] MEDS: BUMETANIDE 1 MG INJ IV ×2 (09:27→18:18)
[2018-06-22] MEDS: HEPARIN 5,000 UNIT/1 ML VIAL SC ×3 (09:33→20:49)
[2018-06-22] MEDS: METOLAZONE 5 MG TAB PO (09:55)
[2018-06-22] MEDS: METHYLPREDNISOLONE 125 MG INJ IV ×2 (14:26→20:48)
[2018-06-22] MEDS: AZITHROMYCIN 500MG/NS (PMX) 250 ML IVPB (14:26)
[2018-06-22] MEDS: FAMOTIDINE 20 MG TAB PO (20:48)
[2018-06-22] MEDS: AMOXICILLIN 500 MG CAP PO (22:00)
[2018-06-23] MEDS: ALBUTEROL/IPRATROPIUM (NEB) 3 ML AMP HHN ×3 (01:40→14:00)
[2018-06-23] MEDS: BUMETANIDE 1 MG INJ IV ×2 (06:00→08:59)
[2018-06-23] MEDS: AMOXICILLIN 500 MG CAP PO ×2 (06:35→14:43)
[2018-06-23] MEDS: METHYLPREDNISOLONE 125 MG INJ IV ×2 (06:44→14:43)
[2018-06-23 06:48] LABS: ANION GAP 14 (5-13); BLOOD UREA NITROGEN 32 mg/dl (7-20); CALCIUM 9.8 mg/dl (8.4-10.2); CARBON DIOXIDE 32 mmol/L (21-31); CHLORIDE 91 mmol/L (97-110); CREATININE 1.18 mg/dl (0.44-1.00); Estimated GFR 57 mL/min (>60); GLUCOSE 159 mg/dl (70-220); MAGNESIUM 2.3 mg/dl (1.7-2.5); POTASSIUM 3.9 mmol/L (3.5-5.1); SODIUM 137 mmol/L (135-144)
[2018-06-23] MEDS: HEPARIN 5,000 UNIT/1 ML VIAL SC ×2 (07:00→14:51)
[2018-06-23] MEDS: SPIRONOLACTONE 25 MG TAB PO (08:25)
[2018-06-23] MEDS: FAMOTIDINE 20 MG TAB PO (08:25)
[2018-06-23] MEDS: SACUBITRIL/VALSARTAN (49mg-51mg) TABLET PO (08:25)
[2018-06-23] MEDS: ASPIRIN (EC) 81 MG TAB PO (08:25)
[2018-06-23 14:23] LABS: CREATININE, RANDOM URINE 57 mg/dL (20-275); MICROALBUMIN <0.2 mg/dL; MICROALBUMIN/CREATININE RATIO NOTE (<30)
== END 2018-06-23 15:30 | disposition home or self-care (01) | DRG 291 ==
LOC: E/R 09:10 → 6WM 12:28
DX: I13.0 Hypertensive heart and chronic kidney disease with heart failure and stage 1 through stage 4 chronic kidney disease, or unspecified chronic kidney disease (principal); I50.23 Acute on chronic systolic (congestive) heart failure; N17.9 Acute kidney failure, unspecified; Z95.810 Presence of automatic (implantable) cardiac defibrillator; I27.20 Pulmonary hypertension, unspecified; J20.9 Acute bronchitis, unspecified; F41.9 Anxiety disorder, unspecified; E66.9 Obesity, unspecified; Z68.33 Body mass index [BMI] 33.0-33.9, adult; Z91.11 Patient's noncompliance with dietary regimen; J45.909 Unspecified asthma, uncomplicated; N18.3 Chronic kidney disease, stage 3 (moderate)
CPT/HCPCS: 36415; 71045; 80048; 80053; 80061; 81003; 82043; 82550; 82553; 83036; 83735; 83880; 84100; 84155; 84300; 84484; 85025; 87070; 93005; 94640; 94664; 96374; 99285-25; G0378

== ENCOUNTER 2018-06-27 18:47 | Inpatient (IN) | payer MEDICARE, OTHER ==
[2018-06-27 19:43] LABS: ADD MAN DIFF? NO
[2018-06-27] MEDS: LORAZEPAM 2 MG INJ IV (19:44)
[2018-06-27] MEDS: ONDANSETRON 4 MG INJ IV (19:44)
[2018-06-27 19:47] LABS: WHITE BLOOD COUNT 11.2 10^3/ul (4.8-10.8)
[2018-06-27 19:47] LABS: BASOPHILS % 0.3 % (0.0-2.0); EOSINOPHILS # 0.1 10^3/ul (0.0-0.5); EOSINOPHILS % 0.4 % (0.0-7.0); HEMATOCRIT 55.4 % (37.0-47.0); HEMOGLOBIN 17.4 g/dl (12.0-16.0); LYMPHOCYTES # 1.4 10^3/ul (0.8-2.9); MEAN CORPUSCULAR HEMOGLOBIN 27.2 pg (29.0-33.0); MEAN CORPUSCULAR HGB CONC 31.4 g/dl (32.0-37.0); MEAN CORPUSCULAR VOLUME 86.7 fl (82.0-101.0); MEAN PLATELET VOLUME 10.7 fl (7.4-10.4); MONOCYTE # 1.5 10^3/ul (0.3-0.9); MONOCYTES % 13.3 % (0.0-11.0); NEUTROPHIL # 8.3 10^3/ul (1.6-7.5); NEUTROPHILS % 73.6 % (39.0-77.0); PLATELET COUNT 316 10^3/UL (140-415); RED BLOOD COUNT 6.39 10^6/ul (4.20-5.40); RED CELL DISTRIBUTION WIDTH 15.9 % (11.5-14.5)
[2018-06-27 20:01] LABS: INR 1.05; PARTIAL THROMBOPLASTIN TIME 24.6 Sec (23.0-35.0); PROTIME 13.8 Sec (11.9-14.9); PT RATIO 1.1
[2018-06-27] MEDS: ENALAPRILAT 1.25 MG INJ IV (20:16)
[2018-06-27 20:17] LABS: B-TYPE NATRIURETIC PEPTIDE 3510 PG/ML (0-125); TROPONIN-I 0.041 ng/ml (0.000-0.120)
[2018-06-27] MEDS: ASPIRIN 81 MG TAB PO (20:22)
[2018-06-27 20:23] LABS: ALANINE AMINOTRANSFERASE 52 IU/L (13-69); ALBUMIN 4.7 g/dl (3.3-4.9); ALBUMIN/GLOBULIN RATIO 1.34; ALKALINE PHOSPHATASE 115 IU/L (42-121); ANION GAP 17 (5-13); ASPARTATE AMINO TRANSFERASE 44 IU/L (15-46); BILIRUBIN,INDIRECT 1.4 mg/dl (0-1.1); BILIRUBIN,TOTAL 1.4 mg/dl (0.2-1.3); BLOOD UREA NITROGEN 63 mg/dl (7-20); CALCIUM 9.6 mg/dl (8.4-10.2); CARBON DIOXIDE 31 mmol/L (21-31); CHLORIDE 83 mmol/L (97-110); CREATININE 1.83 mg/dl (0.44-1.00); Estimated GFR 34 mL/min (>60); GLUCOSE 169 mg/dl (70-220); LIPASE 340 U/L (23-300); POTASSIUM 3.3 mmol/L (3.5-5.1); SODIUM 131 mmol/L (135-144); TOTAL PROTEIN 8.2 g/dl (6.1-8.1)
[2018-06-27] MEDS ORDERED: FUROSEMIDE 40 MG INJ IV (22:00)
[2018-06-27] MEDS: METOCLOPRAMIDE 10 MG INJ IV (22:20)
[2018-06-27] MEDS: FUROSEMIDE 20 MG INJ IV (22:29)
[2018-06-27] MEDS: POTASSIUM CHLORIDE (SR) 20 MEQ TAB PO ×2 (23:45→23:59)
[2018-06-27] MEDS: morphine 2 MG INJ IV (23:58)
[2018-06-28] MEDS ORDERED: ALBUTEROL/IPRATROPIUM (NEB) 3 ML AMP HHN
[2018-06-28] MEDS ORDERED: ACETAMINOPHEN 325 MG TAB PO
[2018-06-28] MEDS ORDERED: NACL 0.9% 3 ML SYG IV
[2018-06-28] MEDS: ONDANSETRON 4 MG INJ IV ×2 (00:30→13:39)
[2018-06-28 02:13] LABS: CREATINE KINASE 29 IU/L (23-200)
[2018-06-28 02:25] LABS: CK INDEX 1.8; CK-MB 0.52 ng/ml (0.0-2.4); TROPONIN-I 0.035 ng/ml (0.000-0.120)
[2018-06-28] MEDS: POTASSIUM CHLORIDE 100 ML IVPB ×2 (04:17→06:30)
[2018-06-28 05:38] LABS: ADD MAN DIFF? NO
[2018-06-28 05:46] LABS: WHITE BLOOD COUNT 12.2 10^3/ul (4.8-10.8)
[2018-06-28 05:46] LABS: BASOPHILS % 0.2 % (0.0-2.0); HEMOGLOBIN 16.8 g/dl (12.0-16.0); LYMPHOCYTES # 0.7 10^3/ul (0.8-2.9); LYMPHOCYTES % 5.5 % (15.0-51.0); MEAN CORPUSCULAR HEMOGLOBIN 27.4 pg (29.0-33.0); MEAN CORPUSCULAR HGB CONC 31.7 g/dl (32.0-37.0); MEAN CORPUSCULAR VOLUME 86.5 fl (82.0-101.0); MEAN PLATELET VOLUME 10.8 fl (7.4-10.4); MONOCYTE # 1.4 10^3/ul (0.3-0.9); MONOCYTES % 11.8 % (0.0-11.0); NEUTROPHIL # 10.1 10^3/ul (1.6-7.5); NEUTROPHILS % 82.2 % (39.0-77.0); PLATELET COUNT 307 10^3/UL (140-415); RED BLOOD COUNT 6.13 10^6/ul (4.20-5.40); RED CELL DISTRIBUTION WIDTH 15.5 % (11.5-14.5)
[2018-06-28 06:48] LABS: ALANINE AMINOTRANSFERASE 59 IU/L (13-69); ALBUMIN 4.4 g/dl (3.3-4.9); ALBUMIN/GLOBULIN RATIO 1.33; ALKALINE PHOSPHATASE 108 IU/L (42-121); ANION GAP 14 (5-13); ASPARTATE AMINO TRANSFERASE 46 IU/L (15-46); BILIRUBIN,INDIRECT 1.7 mg/dl (0-1.1); BILIRUBIN,TOTAL 1.7 mg/dl (0.2-1.3); BLOOD UREA NITROGEN 63 mg/dl (7-20); CALCIUM 9.6 mg/dl (8.4-10.2); CARBON DIOXIDE 38 mmol/L (21-31); CHLORIDE 82 mmol/L (97-110); CREATININE 1.52 mg/dl (0.44-1.00); Estimated GFR 43 mL/min (>60); GLUCOSE 155 mg/dl (70-220); MAGNESIUM 2.7 mg/dl (1.7-2.5); POTASSIUM 3.4 mmol/L (3.5-5.1); SODIUM 134 mmol/L (135-144); TOTAL PROTEIN 7.7 g/dl (6.1-8.1)
[2018-06-28] MEDS: POTASSIUM CHLORIDE (SR) 20 MEQ TAB PO ×2 (07:08→13:31)
[2018-06-28 08:48] LABS: CK-MB 0.57 ng/ml (0.0-2.4); TROPONIN-I 0.032 ng/ml (0.000-0.120)
[2018-06-28 09:04] LABS: CK INDEX 2.1; CREATINE KINASE 27 IU/L (23-200)
[2018-06-28] MEDS: LORAZEPAM 0.5 MG TAB PO (10:19)
[2018-06-28] MEDS: BUMETANIDE 1 MG TAB PO ×2 (10:19→17:46)
[2018-06-28] MEDS: ASPIRIN (EC) 81 MG TAB PO (10:19)
[2018-06-28] MEDS: HYDROCODONE/APAP (5/325) TAB PO (10:20)
[2018-06-28] MEDS: SPIRONOLACTONE 25 MG TAB PO (10:20)
[2018-06-28] MEDS: HEPARIN 5,000 UNIT/1 ML VIAL SC ×2 (11:03→21:19)
[2018-06-28] MEDS: LORAZEPAM 1 MG TAB PO ×2 (15:29→22:30)
[2018-06-28] MEDS: ATORVASTATIN 20 MG TAB PO (21:12)
[2018-06-28] MEDS: ACETAZOLAMIDE 500 MG INJ IV (21:21)
[2018-06-28] MEDS: DICYCLOMINE 10 MG CAP GTB (22:30)
[2018-06-29 01:08] LABS: ADD UMIC NO; UR ASCORBIC ACID NEGATIVE (NEGATIVE); UR BILIRUBIN (Dip) NEGATIVE (NEGATIVE); UR BLOOD (Dip) NEGATIVE (NEGATIVE); UR CLARITY CLEAR (CLEAR); UR COLOR YELLOW (YELLOW); UR GLUCOSE (Dip) NEGATIVE (NEGATIVE); UR KETONES (Dip) NEGATIVE (NEGATIVE); UR LEUKOCYTE ESTERASE (Dip) NEGATIVE Leu/ul (NEGATIVE); UR NITRITE (Dip) NEGATIVE (NEGATIVE); UR TOTAL PROTEIN (Dip) NEGATIVE (NEGATIVE); UR UROBILINOGEN (Dip) NEGATIVE (NEGATIVE)
[2018-06-29 02:19] LABS: SODIUM,URINE RANDOM 23 mmol/L (30-90)
[2018-06-29] MEDS: HYDROCODONE/APAP (5/325) TAB PO ×3 (04:19→20:04)
[2018-06-29 05:48] LABS: ADD MAN DIFF? NO
[2018-06-29 05:54] LABS: WHITE BLOOD COUNT 11.6 10^3/ul (4.8-10.8)
[2018-06-29 05:54] LABS: BASOPHILS % 0.2 % (0.0-2.0); EOSINOPHILS % 0.1 % (0.0-7.0); HEMATOCRIT 52.1 % (37.0-47.0); HEMOGLOBIN 16.6 g/dl (12.0-16.0); LYMPHOCYTES # 0.7 10^3/ul (0.8-2.9); LYMPHOCYTES % 5.9 % (15.0-51.0); MEAN CORPUSCULAR HEMOGLOBIN 27.8 pg (29.0-33.0); MEAN CORPUSCULAR HGB CONC 31.9 g/dl (32.0-37.0); MEAN CORPUSCULAR VOLUME 87.3 fl (82.0-101.0); MEAN PLATELET VOLUME 10.5 fl (7.4-10.4); MONOCYTE # 1.4 10^3/ul (0.3-0.9); MONOCYTES % 12.4 % (0.0-11.0); NEUTROPHIL # 9.4 10^3/ul (1.6-7.5); NEUTROPHILS % 80.8 % (39.0-77.0); PLATELET COUNT 277 10^3/UL (140-415); RED BLOOD COUNT 5.97 10^6/ul (4.20-5.40); RED CELL DISTRIBUTION WIDTH 15.7 % (11.5-14.5)
[2018-06-29 06:17] LABS: MAGNESIUM 2.6 mg/dl (1.7-2.5)
[2018-06-29] MEDS: PANTOPRAZOLE 40 MG INJ IV (06:19)
[2018-06-29] MEDS: BUMETANIDE 1 MG TAB PO (06:19)
[2018-06-29] MEDS: DICYCLOMINE 10 MG CAP GTB ×3 (06:19→20:18)
[2018-06-29 06:30] LABS: ANION GAP 10 (5-13); BLOOD UREA NITROGEN 40 mg/dl (7-20); CALCIUM 9.5 mg/dl (8.4-10.2); CARBON DIOXIDE 36 mmol/L (21-31); CHLORIDE 84 mmol/L (97-110); CREATININE 1.53 mg/dl (0.44-1.00); Estimated GFR 42 mL/min (>60); GLUCOSE 136 mg/dl (70-220); POTASSIUM 3.2 mmol/L (3.5-5.1); SODIUM 130 mmol/L (135-144)
[2018-06-29] MEDS: ASPIRIN (EC) 81 MG TAB PO (08:56)
[2018-06-29] MEDS: SPIRONOLACTONE 25 MG TAB PO (08:57)
[2018-06-29] MEDS: HEPARIN 5,000 UNIT/1 ML VIAL SC ×2 (09:00→20:23)
[2018-06-29] MEDS: ACETAZOLAMIDE 500 MG INJ IV (10:00)
[2018-06-29] MEDS: POTASSIUM CHLORIDE (SR) 20 MEQ TAB PO (10:00)
[2018-06-29 10:30] LABS: AADO2 Arterial 10.4 mmHg (7.0-24.0); Allen Test ACCEPTAB; Arterial Base Excess 12.4 mmol/L (-3.0-3); Arterial Blood Gas Oxygen Sat 95.9 mmHG (95.0-98.0); Arterial COHb 1.4 % (0.0-3.0); Arterial Fraction of Oxyhgb 94.4 % (93.0-99.0); Arterial HCO3 38.2 mmol/L (22.0-26.0); Arterial MetHb 0.2 % (0.0-1.5); Arterial pCO2 51.1 mmhg (35-45); MODE ROOM AIR; Site Right Radial
[2018-06-29] MEDS: BISACODYL (EC) 5 MG TAB PO (16:01)
[2018-06-29] MEDS: ONDANSETRON 4 MG INJ IV (17:24)
[2018-06-29] MEDS: ATORVASTATIN 20 MG TAB PO (20:18)
[2018-06-30] MEDS: METOCLOPRAMIDE 10 MG INJ IV ×5 (00:18→23:39)
[2018-06-30] MEDS: HYDROCODONE/APAP (5/325) TAB PO ×3 (04:28→20:18)
[2018-06-30] MEDS: PANTOPRAZOLE 40 MG INJ IV (05:06)
[2018-06-30] MEDS: DICYCLOMINE 10 MG CAP GTB ×3 (05:06→21:20)
[2018-06-30 06:10] LABS: ADD MAN DIFF? NO
[2018-06-30 06:29] LABS: WHITE BLOOD COUNT 11.3 10^3/ul (4.8-10.8)
[2018-06-30 06:29] LABS: BASOPHILS % 0.1 % (0.0-2.0); EOSINOPHILS % 0.3 % (0.0-7.0); HEMATOCRIT 52.2 % (37.0-47.0); HEMOGLOBIN 16.5 g/dl (12.0-16.0); LYMPHOCYTES # 0.9 10^3/ul (0.8-2.9); LYMPHOCYTES % 7.6 % (15.0-51.0); MEAN CORPUSCULAR HEMOGLOBIN 27.5 pg (29.0-33.0); MEAN CORPUSCULAR HGB CONC 31.6 g/dl (32.0-37.0); MEAN CORPUSCULAR VOLUME 87.1 fl (82.0-101.0); MEAN PLATELET VOLUME 10.9 fl (7.4-10.4); MONOCYTE # 1.2 10^3/ul (0.3-0.9); NEUTROPHIL # 9.1 10^3/ul (1.6-7.5); NEUTROPHILS % 80.6 % (39.0-77.0); PLATELET COUNT 260 10^3/UL (140-415); RED BLOOD COUNT 5.99 10^6/ul (4.20-5.40); RED CELL DISTRIBUTION WIDTH 15.6 % (11.5-14.5)
[2018-06-30 06:42] LABS: ANION GAP 11 (5-13); BLOOD UREA NITROGEN 42 mg/dl (7-20); CALCIUM 9.3 mg/dl (8.4-10.2); CARBON DIOXIDE 31 mmol/L (21-31); CHLORIDE 85 mmol/L (97-110); CREATININE 1.45 mg/dl (0.44-1.00); Estimated GFR 45 mL/min (>60); GLUCOSE 134 mg/dl (70-220); MAGNESIUM 2.6 mg/dl (1.7-2.5); PHOSPHORUS 3.5 mg/dl (2.5-4.9); POTASSIUM 3.2 mmol/L (3.5-5.1); SODIUM 127 mmol/L (135-144)
[2018-06-30] MEDS: POTASSIUM CHLORIDE (SR) 20 MEQ TAB PO (09:25)
[2018-06-30] MEDS: ASPIRIN (EC) 81 MG TAB PO (09:25)
[2018-06-30] MEDS: SPIRONOLACTONE 25 MG TAB PO (09:26)
[2018-06-30] MEDS: HEPARIN 5,000 UNIT/1 ML VIAL SC ×2 (09:42→21:00)
[2018-06-30] MEDS: POLYETHYLENE GLYCOL 17 GM PACKET PO (09:43)
[2018-06-30 15:15] LABS: ANION GAP 10 (5-13); BLOOD UREA NITROGEN 38 mg/dl (7-20); CALCIUM 9.3 mg/dl (8.4-10.2); CARBON DIOXIDE 31 mmol/L (21-31); CHLORIDE 85 mmol/L (97-110); CREATININE 1.37 mg/dl (0.44-1.00); Estimated GFR 48 mL/min (>60); GLUCOSE 117 mg/dl (70-220); POTASSIUM 3.7 mmol/L (3.5-5.1); SODIUM 126 mmol/L (135-144)
[2018-06-30 15:57] LABS: CREATININE, RANDOM URINE 61 mg/dL (20-275); MICROALBUMIN 0.7 mg/dL; MICROALBUMIN/CREATININE RATIO 11 (<30)
[2018-06-30] MEDS: ONDANSETRON 4 MG INJ IV (18:35)
[2018-06-30] MEDS: ATORVASTATIN 20 MG TAB PO (21:19)
[2018-07-01] MEDS: DICYCLOMINE 10 MG CAP GTB ×3 (06:00→21:11)
[2018-07-01 06:24] LABS: ADD MAN DIFF? NO
[2018-07-01] MEDS: PANTOPRAZOLE 40 MG INJ IV (06:28)
[2018-07-01] MEDS: METOCLOPRAMIDE 10 MG INJ IV ×4 (06:28→23:50)
[2018-07-01 06:30] LABS: BASOPHILS % 0.2 % (0.0-2.0); EOSINOPHILS # 0.1 10^3/ul (0.0-0.5); EOSINOPHILS % 0.5 % (0.0-7.0); HEMATOCRIT 50.9 % (37.0-47.0); HEMOGLOBIN 16.4 g/dl (12.0-16.0); LYMPHOCYTES # 0.9 10^3/ul (0.8-2.9); LYMPHOCYTES % 7.9 % (15.0-51.0); MEAN CORPUSCULAR HEMOGLOBIN 28.2 pg (29.0-33.0); MEAN CORPUSCULAR HGB CONC 32.2 g/dl (32.0-37.0); MEAN CORPUSCULAR VOLUME 87.5 fl (82.0-101.0); MEAN PLATELET VOLUME 10.7 fl (7.4-10.4); MONOCYTE # 1.5 10^3/ul (0.3-0.9); MONOCYTES % 13.3 % (0.0-11.0); NEUTROPHIL # 8.6 10^3/ul (1.6-7.5); NEUTROPHILS % 77.6 % (39.0-77.0); PLATELET COUNT 264 10^3/UL (140-415); RED BLOOD COUNT 5.82 10^6/ul (4.20-5.40); RED CELL DISTRIBUTION WIDTH 15.1 % (11.5-14.5)
[2018-07-01 06:30] LABS: WHITE BLOOD COUNT 11.1 10^3/ul (4.8-10.8)
[2018-07-01 07:04] LABS: ANION GAP 11 (5-13); BLOOD UREA NITROGEN 36 mg/dl (7-20); CALCIUM 9.5 mg/dl (8.4-10.2); CARBON DIOXIDE 34 mmol/L (21-31); CHLORIDE 82 mmol/L (97-110); CREATININE 1.54 mg/dl (0.44-1.00); Estimated GFR 42 mL/min (>60); GLUCOSE 109 mg/dl (70-220); MAGNESIUM 2.6 mg/dl (1.7-2.5); PHOSPHORUS 3.3 mg/dl (2.5-4.9); POTASSIUM 4.1 mmol/L (3.5-5.1); SODIUM 127 mmol/L (135-144)
[2018-07-01] MEDS: POTASSIUM CHLORIDE (SR) 20 MEQ TAB PO (08:41)
[2018-07-01] MEDS: HEPARIN 5,000 UNIT/1 ML VIAL SC ×2 (09:00→21:14)
[2018-07-01] MEDS: POLYETHYLENE GLYCOL 17 GM PACKET PO (09:00)
[2018-07-01] MEDS ORDERED: ONDANSETRON 4 MG INJ (10:00)
[2018-07-01] MEDS ORDERED: PROPOFOL 40 ML (10:42)
[2018-07-01] MEDS ORDERED: LIDOCAINE 4% SOLUTION 50 ML BTL (10:48)
[2018-07-01] MEDS: HYDROCODONE/APAP (5/325) TAB PO (12:24)
[2018-07-01] MEDS: SPIRONOLACTONE 25 MG TAB PO (12:27)
[2018-07-01] MEDS: ASPIRIN (EC) 81 MG TAB PO (12:27)
[2018-07-01] MEDS: FLUCONAZOLE 100 MG TAB PO (13:03)
[2018-07-01] MEDS: ACETAZOLAMIDE 500 MG INJ IV (13:03)
[2018-07-01] MEDS: ESCITALOPRAM 10 MG TAB PO (14:18)
[2018-07-01] MEDS: morphine 2 MG INJ IV (18:03)
[2018-07-01] MEDS: ATORVASTATIN 20 MG TAB PO (21:12)
[2018-07-02 05:18] LABS: ADD MAN DIFF? NO
[2018-07-02 05:20] LABS: BASOPHILS % 0.2 % (0.0-2.0); EOSINOPHILS # 0.1 10^3/ul (0.0-0.5); EOSINOPHILS % 0.7 % (0.0-7.0); HEMOGLOBIN 15.4 g/dl (12.0-16.0); LYMPHOCYTES # 0.8 10^3/ul (0.8-2.9); LYMPHOCYTES % 7.1 % (15.0-51.0); MEAN CORPUSCULAR HGB CONC 32.1 g/dl (32.0-37.0); MEAN CORPUSCULAR VOLUME 87.3 fl (82.0-101.0); MEAN PLATELET VOLUME 10.6 fl (7.4-10.4); MONOCYTE # 1.1 10^3/ul (0.3-0.9); MONOCYTES % 10.1 % (0.0-11.0); NEUTROPHIL # 8.8 10^3/ul (1.6-7.5); NEUTROPHILS % 81.3 % (39.0-77.0); PLATELET COUNT 222 10^3/UL (140-415); RED CELL DISTRIBUTION WIDTH 14.8 % (11.5-14.5)
[2018-07-02 05:20] LABS: WHITE BLOOD COUNT 10.8 10^3/ul (4.8-10.8)
[2018-07-02] MEDS: METOCLOPRAMIDE 10 MG INJ IV ×3 (05:48→17:33)
[2018-07-02] MEDS: DICYCLOMINE 10 MG CAP GTB ×3 (05:49→21:00)
[2018-07-02] MEDS: PANTOPRAZOLE (EC) 40 MG TAB PO (05:49)
[2018-07-02 05:54] LABS: ANION GAP 11 (5-13); BLOOD UREA NITROGEN 27 mg/dl (7-20); CALCIUM 9.2 mg/dl (8.4-10.2); CARBON DIOXIDE 30 mmol/L (21-31); CHLORIDE 87 mmol/L (97-110); CREATININE 1.39 mg/dl (0.44-1.00); Estimated GFR 47 mL/min (>60); GLUCOSE 123 mg/dl (70-220); MAGNESIUM 2.5 mg/dl (1.7-2.5); PHOSPHORUS 3.3 mg/dl (2.5-4.9); POTASSIUM 3.6 mmol/L (3.5-5.1); SODIUM 128 mmol/L (135-144)
[2018-07-02] MEDS: SPIRONOLACTONE 25 MG TAB PO (08:27)
[2018-07-02] MEDS: ESCITALOPRAM 10 MG TAB PO (08:27)
[2018-07-02] MEDS: FLUCONAZOLE 100 MG TAB PO (08:28)
[2018-07-02] MEDS: ASPIRIN (EC) 81 MG TAB PO (08:29)
[2018-07-02] MEDS: POLYETHYLENE GLYCOL 17 GM PACKET PO (08:30)
[2018-07-02] MEDS: HEPARIN 5,000 UNIT/1 ML VIAL SC ×2 (08:39→21:07)
[2018-07-02] MEDS: HYDROCODONE/APAP (5/325) TAB PO ×2 (15:07→22:40)
[2018-07-02] MEDS: FOSFOMYCIN 3 GM PACKET PO (15:32)
[2018-07-02] MEDS: ATORVASTATIN 20 MG TAB PO (21:00)
[2018-07-03] MEDS: METOCLOPRAMIDE 10 MG INJ IV ×4 (00:05→18:44)
[2018-07-03] MEDS: DICYCLOMINE 10 MG CAP GTB (05:30)
[2018-07-03] MEDS: PANTOPRAZOLE (EC) 40 MG TAB PO (05:30)
[2018-07-03 07:19] LABS: ANION GAP 8 (5-13); BLOOD UREA NITROGEN 24 mg/dl (7-20); CALCIUM 9.2 mg/dl (8.4-10.2); CARBON DIOXIDE 28 mmol/L (21-31); CHLORIDE 91 mmol/L (97-110); CREATININE 1.25 mg/dl (0.44-1.00); Estimated GFR 53 mL/min (>60); GLUCOSE 98 mg/dl (70-220); MAGNESIUM 2.4 mg/dl (1.7-2.5); PHOSPHORUS 2.8 mg/dl (2.5-4.9); POTASSIUM 3.4 mmol/L (3.5-5.1); SODIUM 127 mmol/L (135-144)
[2018-07-03] MEDS: POTASSIUM CHLORIDE (SR) 20 MEQ TAB PO (08:57)
[2018-07-03] MEDS: FLUCONAZOLE 100 MG TAB PO (08:58)
[2018-07-03] MEDS: SPIRONOLACTONE 25 MG TAB PO (08:58)
[2018-07-03] MEDS: ASPIRIN (EC) 81 MG TAB PO (08:58)
[2018-07-03] MEDS: ESCITALOPRAM 10 MG TAB PO (08:58)
[2018-07-03] MEDS: BUMETANIDE 1 MG TAB PO (08:59)
[2018-07-03] MEDS: HYDROCODONE/APAP (5/325) TAB PO (09:01)
[2018-07-03] MEDS: POLYETHYLENE GLYCOL 17 GM PACKET PO (09:02)
[2018-07-03] MEDS: HEPARIN 5,000 UNIT/1 ML VIAL SC ×2 (09:13→21:09)
[2018-07-03] MEDS ORDERED: DOCUSATE SODIUM 100 MG CAP PO (09:30)
[2018-07-03] MEDS ORDERED: CHLORDIAZEPOXIDE/CLIDINIUM CAP PO (17:30)
[2018-07-03] MEDS: ATORVASTATIN 20 MG TAB PO (20:51)
[2018-07-03] MEDS: CHLORDIAZEPOXIDE/CLIDINIUM CAP PO (20:53)
[2018-07-04] MEDS: METOCLOPRAMIDE 10 MG INJ IV ×4 (00:08→17:28)
[2018-07-04 05:10] LABS: ADD MAN DIFF? NO
[2018-07-04 05:13] LABS: BASOPHILS % 0.2 % (0.0-2.0); EOSINOPHILS # 0.2 10^3/ul (0.0-0.5); EOSINOPHILS % 1.3 % (0.0-7.0); HEMATOCRIT 44.4 % (37.0-47.0); HEMOGLOBIN 14.7 g/dl (12.0-16.0); LYMPHOCYTES # 1.1 10^3/ul (0.8-2.9); LYMPHOCYTES % 9.3 % (15.0-51.0); MEAN CORPUSCULAR HEMOGLOBIN 28.4 pg (29.0-33.0); MEAN CORPUSCULAR HGB CONC 33.1 g/dl (32.0-37.0); MEAN CORPUSCULAR VOLUME 85.7 fl (82.0-101.0); MEAN PLATELET VOLUME 10.9 fl (7.4-10.4); MONOCYTE # 1.2 10^3/ul (0.3-0.9); MONOCYTES % 10.7 % (0.0-11.0); NEUTROPHILS % 78.1 % (39.0-77.0); PLATELET COUNT 198 10^3/UL (140-415); RED BLOOD COUNT 5.18 10^6/ul (4.20-5.40); RED CELL DISTRIBUTION WIDTH 14.9 % (11.5-14.5)
[2018-07-04 05:13] LABS: WHITE BLOOD COUNT 11.6 10^3/ul (4.8-10.8)
[2018-07-04 05:42] LABS: ANION GAP 10 (5-13); BLOOD UREA NITROGEN 22 mg/dl (7-20); CALCIUM 9.5 mg/dl (8.4-10.2); CARBON DIOXIDE 29 mmol/L (21-31); CHLORIDE 91 mmol/L (97-110); CREATININE 1.34 mg/dl (0.44-1.00); Estimated GFR 49 mL/min (>60); GLUCOSE 91 mg/dl (70-220); POTASSIUM 3.8 mmol/L (3.5-5.1); SODIUM 130 mmol/L (135-144)
[2018-07-04] MEDS: PANTOPRAZOLE (EC) 40 MG TAB PO ×2 (06:06→06:22)
[2018-07-04 06:20] LABS: PHOSPHORUS 2.8 mg/dl (2.5-4.9)
[2018-07-04 06:20] LABS: MAGNESIUM 2.3 mg/dl (1.7-2.5)
[2018-07-04] MEDS: SENNA TAB PO (06:34)
[2018-07-04] MEDS: HYDROCODONE/APAP (5/325) TAB PO ×2 (06:35→16:07)
[2018-07-04] MEDS: CHLORDIAZEPOXIDE/CLIDINIUM CAP PO (06:39)
[2018-07-04] MEDS: POLYETHYLENE GLYCOL 17 GM PACKET PO (08:45)
[2018-07-04] MEDS: BUMETANIDE 1 MG TAB PO (08:46)
[2018-07-04] MEDS: ESCITALOPRAM 10 MG TAB PO (08:46)
[2018-07-04] MEDS: SPIRONOLACTONE 25 MG TAB PO (08:46)
[2018-07-04] MEDS: ASPIRIN (EC) 81 MG TAB PO (08:46)
[2018-07-04] MEDS: FLUCONAZOLE 100 MG TAB PO (08:46)
[2018-07-04] MEDS: HEPARIN 5,000 UNIT/1 ML VIAL SC ×2 (08:51→22:38)
[2018-07-04 11:14] LABS: LIPASE 1209 U/L (23-300)
[2018-07-04 11:14] LABS: AMYLASE 221 U/L (11-123)
[2018-07-04] MEDS: DICYCLOMINE 10 MG CAP NGT (14:30)
[2018-07-04] MEDS: ONDANSETRON 4 MG INJ IV (21:41)
[2018-07-04] MEDS: ATORVASTATIN 20 MG TAB PO (21:41)
[2018-07-04] MEDS: SACUBITRIL/VALSARTAN (24mg-26mg) TABLET PO (21:42)
[2018-07-04] MEDS: LORAZEPAM 1 MG TAB PO (21:59)
[2018-07-05] MEDS: METOCLOPRAMIDE 10 MG INJ IV ×3 (00:13→12:33)
[2018-07-05] MEDS: DICYCLOMINE 10 MG CAP NGT ×3 (00:13→13:17)
[2018-07-05 06:59] LABS: ANION GAP 12 (5-13); BLOOD UREA NITROGEN 22 mg/dl (7-20); CALCIUM 9.3 mg/dl (8.4-10.2); CARBON DIOXIDE 26 mmol/L (21-31); CHLORIDE 90 mmol/L (97-110); CREATININE 1.17 mg/dl (0.44-1.00); Estimated GFR 58 mL/min (>60); GLUCOSE 116 mg/dl (70-220); MAGNESIUM 1.7 mg/dl (1.7-2.5); PHOSPHORUS 3.2 mg/dl (2.5-4.9); POTASSIUM 3.5 mmol/L (3.5-5.1); SODIUM 128 mmol/L (135-144)
[2018-07-05] MEDS: ASPIRIN (EC) 81 MG TAB PO (08:02)
[2018-07-05] MEDS: SPIRONOLACTONE 25 MG TAB PO (08:02)
[2018-07-05] MEDS: ESCITALOPRAM 10 MG TAB PO (08:02)
[2018-07-05] MEDS: FLUCONAZOLE 100 MG TAB PO (08:02)
[2018-07-05] MEDS: SACUBITRIL/VALSARTAN (24mg-26mg) TABLET PO (08:02)
[2018-07-05] MEDS: HEPARIN 5,000 UNIT/1 ML VIAL SC (08:11)
[2018-07-05] MEDS: BUMETANIDE 1 MG TAB PO (09:00)
[2018-07-05] MEDS: POTASSIUM CHLORIDE (SR) 20 MEQ TAB PO (09:25)
[2018-07-05] MEDS: POLYETHYLENE GLYCOL 17 GM PACKET PO (09:27)
== END 2018-07-05 16:08 | disposition home health service (06) | DRG 392 ==
LOC: 6WM 06-30 20:56 → E/R 18:47 → 6WM 20:09
PROC: 0DB68ZX Excision of Stomach, Via Natural or Artificial Opening Endoscopic, Diagnostic (ICD-10-PCS; principal; 2018-07-01 10:02)
DX: K29.00 Acute gastritis without bleeding (principal); B37.81 Candidal esophagitis; N17.9 Acute kidney failure, unspecified; I42.9 Cardiomyopathy, unspecified; I50.22 Chronic systolic (congestive) heart failure; I13.0 Hypertensive heart and chronic kidney disease with heart failure and stage 1 through stage 4 chronic kidney disease, or unspecified chronic kidney disease; E87.3 Alkalosis; E87.1 Hypo-osmolality and hyponatremia; D75.1 Secondary polycythemia; E87.6 Hypokalemia; E83.42 Hypomagnesemia; E80.4 Gilbert syndrome; I27.20 Pulmonary hypertension, unspecified; M16.11 Unilateral primary osteoarthritis, right hip; N18.9 Chronic kidney disease, unspecified; R07.89 Other chest pain; F06.31 Mood disorder due to known physiological condition with depressive features; N32.89 Other specified disorders of bladder; K59.00 Constipation, unspecified; R53.81 Other malaise; Z95.810 Presence of automatic (implantable) cardiac defibrillator; Z87.891 Personal history of nicotine dependence; Z79.82 Long term (current) use of aspirin
CPT/HCPCS: 36415; 36600; 71045; 74176; 80048; 80053; 81003; 82043; 82150; 82550; 82553; 82803; 83690; 83735; 83880; 84100; 84155; 84300; 84484; 85025; 85610; 85730; 87081; 87086; 88104; 88305; 88312; 93005; 96374; 96375; 97116; 97162; 97530; 99285-25

== ENCOUNTER 2018-09-21 14:27 | Inpatient (IN) | payer MEDICARE, OTHER ==
[2018-09-21] MEDS: SOD CHLORIDE 0.9% 500 ML IV (15:36)
[2018-09-21 15:46] LABS: ADD MAN DIFF? NO
[2018-09-21 15:47] LABS: WHITE BLOOD COUNT 6.3 10^3/ul (4.8-10.8)
[2018-09-21 15:47] LABS: BASOPHILS % 0.5 % (0.0-2.0); EOSINOPHILS % 0.5 % (0.0-7.0); HEMATOCRIT 44.1 % (37.0-47.0); HEMOGLOBIN 14.3 g/dl (12.0-16.0); LYMPHOCYTES # 0.9 10^3/ul (0.8-2.9); LYMPHOCYTES % 14.4 % (15.0-51.0); MEAN CORPUSCULAR HEMOGLOBIN 28.8 pg (29.0-33.0); MEAN CORPUSCULAR HGB CONC 32.4 g/dl (32.0-37.0); MEAN CORPUSCULAR VOLUME 88.9 fl (82.0-101.0); MEAN PLATELET VOLUME 11.6 fl (7.4-10.4); MONOCYTE # 0.6 10^3/ul (0.3-0.9); MONOCYTES % 9.4 % (0.0-11.0); NEUTROPHIL # 4.7 10^3/ul (1.6-7.5); NEUTROPHILS % 74.7 % (39.0-77.0); PLATELET COUNT 228 10^3/UL (140-415); RED BLOOD COUNT 4.96 10^6/ul (4.20-5.40); RED CELL DISTRIBUTION WIDTH 15.3 % (11.5-14.5)
[2018-09-21 15:55] LABS: ALANINE AMINOTRANSFERASE 18 IU/L (13-69); ALBUMIN 4.5 g/dl (3.3-4.9); ALBUMIN/GLOBULIN RATIO 1.36; ALKALINE PHOSPHATASE 99 IU/L (42-121); ANION GAP 15 (5-13); ASPARTATE AMINO TRANSFERASE 49 IU/L (15-46); BILIRUBIN,INDIRECT 1.4 mg/dl (0-1.1); BILIRUBIN,TOTAL 1.4 mg/dl (0.2-1.3); BLOOD UREA NITROGEN 38 mg/dl (7-20); CALCIUM 10.1 mg/dl (8.4-10.2); CARBON DIOXIDE 31 mmol/L (21-31); CHLORIDE 93 mmol/L (97-110); CREATININE 2.43 mg/dl (0.44-1.00); Estimated GFR 25 mL/min (>60); GLUCOSE 77 mg/dl (70-220); LIPASE 236 U/L (23-300); POTASSIUM 3.9 mmol/L (3.5-5.1); SODIUM 139 mmol/L (135-144); TOTAL PROTEIN 7.8 g/dl (6.1-8.1)
[2018-09-21 16:07] LABS: B-TYPE NATRIURETIC PEPTIDE 3060 PG/ML (0-125); TROPONIN-I 0.028 ng/ml (0.000-0.120)
[2018-09-21 17:40] LABS: ADD UMIC YES; UR ASCORBIC ACID NEGATIVE (NEGATIVE); UR BACTERIA FEW /HPF (NONE SEEN); UR BILIRUBIN (Dip) NEGATIVE (NEGATIVE); UR BLOOD (Dip) 1+ mg/dL (NEGATIVE); UR CLARITY CLOUDY (CLEAR); UR COLOR YELLOW (YELLOW); UR GLUCOSE (Dip) NEGATIVE (NEGATIVE); UR KETONES (Dip) NEGATIVE (NEGATIVE); UR LEUKOCYTE ESTERASE (Dip) 3+ Leu/ul (NEGATIVE); UR NITRITE (Dip) NEGATIVE (NEGATIVE); UR RBC 7 /HPF (0-5); UR SPECIFIC GRAVITY (Dip) 1.009 (1.003-1.030); UR SQUAMOUS EPITHELIAL CELL MODERATE /HPF (FEW); UR TOTAL PROTEIN (Dip) NEGATIVE (NEGATIVE); UR UROBILINOGEN (Dip) NEGATIVE (NEGATIVE); UR WBC > 182 /HPF (0-5)
[2018-09-21] MEDS: CEFTRIAXONE 1 GM/50 ML (PMX) 50 ML IVPB (18:28)
[2018-09-21] MEDS ORDERED: LORAZEPAM 0.5 MG TAB PO (21:00)
[2018-09-21] MEDS ORDERED: ACETAMINOPHEN 325 MG TAB PO (21:00)
[2018-09-21] MEDS ORDERED: SENNA TAB PO (21:00)
[2018-09-21] MEDS ORDERED: ONDANSETRON 4 MG INJ IV (21:00)
[2018-09-21] MEDS ORDERED: NACL 0.9% 3 ML SYG IV (21:00)
[2018-09-21] MEDS ORDERED: ALBUTEROL/IPRATROPIUM (NEB) 3 ML AMP HHN (21:00)
[2018-09-21] MEDS: HEPARIN 5,000 UNIT/1 ML VIAL SC (21:19)
[2018-09-21] MEDS: ATORVASTATIN 20 MG TAB PO (21:19)
[2018-09-21] MEDS: MIDODRINE 5 MG TAB PO (21:21)
[2018-09-21] MEDS: SOD CHLORIDE 0.9% 250 ML IV (22:45)
[2018-09-22] MEDS: SOD CHLORIDE 0.9% 250 ML IV (04:06)
[2018-09-22] MEDS: PANTOPRAZOLE (EC) 40 MG TAB PO ×2 (07:25→09:03)
[2018-09-22] MEDS: ESCITALOPRAM 10 MG TAB PO ×2 (09:00→09:03)
[2018-09-22] MEDS: DOCUSATE SODIUM 100 MG CAP PO (09:00)
[2018-09-22] MEDS: POLYETHYLENE GLYCOL 17 GM PACKET PO (09:00)
[2018-09-22] MEDS: MIDODRINE 5 MG TAB PO ×3 (09:02→17:40)
[2018-09-22] MEDS: ASPIRIN (EC) 81 MG TAB PO (09:03)
[2018-09-22] MEDS: HEPARIN 5,000 UNIT/1 ML VIAL SC (09:05)
[2018-09-22 10:50] LABS: ADD MAN DIFF? NO
[2018-09-22 10:56] LABS: WHITE BLOOD COUNT 5.4 10^3/ul (4.8-10.8)
[2018-09-22 10:56] LABS: BASOPHILS % 0.7 % (0.0-2.0); EOSINOPHILS # 0.1 10^3/ul (0.0-0.5); EOSINOPHILS % 1.5 % (0.0-7.0); LYMPHOCYTES % 18.3 % (15.0-51.0); MEAN CORPUSCULAR HEMOGLOBIN 28.6 pg (29.0-33.0); MEAN CORPUSCULAR HGB CONC 31.7 g/dl (32.0-37.0); MEAN CORPUSCULAR VOLUME 90.3 fl (82.0-101.0); MEAN PLATELET VOLUME 11.3 fl (7.4-10.4); MONOCYTE # 0.8 10^3/ul (0.3-0.9); MONOCYTES % 15.5 % (0.0-11.0); NEUTROPHIL # 3.4 10^3/ul (1.6-7.5); NEUTROPHILS % 63.6 % (39.0-77.0); PLATELET COUNT 207 10^3/UL (140-415); RED BLOOD COUNT 4.54 10^6/ul (4.20-5.40); RED CELL DISTRIBUTION WIDTH 15.6 % (11.5-14.5)
[2018-09-22 11:18] LABS: LACTIC ACID 1.1 mmol/L (0.5-2.0)
[2018-09-22 11:20] LABS: CREATINE KINASE 45 IU/L (23-200)
[2018-09-22 11:24] LABS: ALANINE AMINOTRANSFERASE 26 IU/L (13-69); ALBUMIN/GLOBULIN RATIO 1.37; ALKALINE PHOSPHATASE 93 IU/L (42-121); ANION GAP 10 (5-13); ASPARTATE AMINO TRANSFERASE 24 IU/L (15-46); BILIRUBIN,INDIRECT 0.9 mg/dl (0-1.1); BILIRUBIN,TOTAL 0.9 mg/dl (0.2-1.3); BLOOD UREA NITROGEN 44 mg/dl (7-20); CALCIUM 9.4 mg/dl (8.4-10.2); CARBON DIOXIDE 31 mmol/L (21-31); CHLORIDE 97 mmol/L (97-110); CHOL/HDL RATIO 4.6 RATIO; CHOLESTEROL 153 mg/dl (100-200); CREATININE 2.01 mg/dl (0.44-1.00); Estimated GFR 31 mL/min (>60); GLUCOSE 89 mg/dl (70-220); HDL CHOLESTEROL 33 mg/dl (37-92); LDL CHOLESTEROL,CALCULATED 89 mg/dl; MAGNESIUM 2.5 mg/dl (1.7-2.5); POTASSIUM 4.4 mmol/L (3.5-5.1); SODIUM 138 mmol/L (135-144); TOTAL PROTEIN 6.9 g/dl (6.1-8.1); TRIGLYCERIDES 153 mg/dl (0-149)
[2018-09-22 11:27] LABS: CK INDEX 0.5; CK-MB < 0.22 ng/ml (0.0-2.4); TROPONIN-I < 0.012 ng/ml (0.000-0.120)
== END 2018-09-22 18:00 | disposition home or self-care (01) | DRG 315 ==
LOC: E/R 14:27 → TEL 16:46
DX: I95.89 Other hypotension (principal); N17.9 Acute kidney failure, unspecified; I42.9 Cardiomyopathy, unspecified; E86.0 Dehydration; N18.9 Chronic kidney disease, unspecified; E78.5 Hyperlipidemia, unspecified; N18.3 Chronic kidney disease, stage 3 (moderate); Z95.810 Presence of automatic (implantable) cardiac defibrillator; T50.2X5A Adverse effect of carbonic-anhydrase inhibitors, benzothiadiazides and other diuretics, initial encounter
CPT/HCPCS: 36415; 71045; 80053; 80061; 81001; 82550; 82553; 83605; 83690; 83735; 83880; 84484; 85025; 87086; 93005; 93798; 99285-25

== ENCOUNTER 2018-09-27 10:18 | Observation (INO) | payer MEDICARE, OTHER ==
[2018-09-27] MEDS: ONDANSETRON 4 MG INJ IV ×3 (10:38→22:59)
[2018-09-27] MEDS: morphine 4 MG/ML VIAL IV (10:38)
[2018-09-27 10:50] LABS: ADD MAN DIFF? NO
[2018-09-27 10:56] LABS: WHITE BLOOD COUNT 10.9 10^3/ul (4.8-10.8)
[2018-09-27 10:56] LABS: BASOPHILS % 0.1 % (0.0-2.0); HEMATOCRIT 42.4 % (37.0-47.0); HEMOGLOBIN 13.5 g/dl (12.0-16.0); LYMPHOCYTES # 0.7 10^3/ul (0.8-2.9); LYMPHOCYTES % 6.4 % (15.0-51.0); MEAN CORPUSCULAR HEMOGLOBIN 28.7 pg (29.0-33.0); MEAN CORPUSCULAR HGB CONC 31.8 g/dl (32.0-37.0); MEAN PLATELET VOLUME 11.3 fl (7.4-10.4); MONOCYTE # 0.8 10^3/ul (0.3-0.9); MONOCYTES % 7.1 % (0.0-11.0); NEUTROPHIL # 9.3 10^3/ul (1.6-7.5); NEUTROPHILS % 85.8 % (39.0-77.0); PLATELET COUNT 234 10^3/UL (140-415); RED BLOOD COUNT 4.71 10^6/ul (4.20-5.40); RED CELL DISTRIBUTION WIDTH 15.1 % (11.5-14.5)
[2018-09-27 11:09] LABS: ALANINE AMINOTRANSFERASE 19 IU/L (13-69); ALBUMIN 4.8 g/dl (3.3-4.9); ALBUMIN/GLOBULIN RATIO 1.41; ALKALINE PHOSPHATASE 108 IU/L (42-121); ANION GAP 16 (5-13); ASPARTATE AMINO TRANSFERASE 34 IU/L (15-46); BILIRUBIN,INDIRECT 2.5 mg/dl (0-1.1); BILIRUBIN,TOTAL 2.5 mg/dl (0.2-1.3); BLOOD UREA NITROGEN 34 mg/dl (7-20); CALCIUM 10.3 mg/dl (8.4-10.2); CARBON DIOXIDE 25 mmol/L (21-31); CHLORIDE 98 mmol/L (97-110); CREATININE 1.65 mg/dl (0.44-1.00); Estimated GFR 39 mL/min (>60); GLUCOSE 167 mg/dl (70-220); LIPASE 95 U/L (23-300); POTASSIUM 4.2 mmol/L (3.5-5.1); SODIUM 139 mmol/L (135-144); TOTAL PROTEIN 8.2 g/dl (6.1-8.1)
[2018-09-27] MEDS ORDERED: ONDANSETRON 4 MG INJ IV (13:30)
[2018-09-27] MEDS ORDERED: ACETAMINOPHEN 325 MG TAB PO ×2 (13:30→14:30)
[2018-09-27] MEDS ORDERED: NACL 0.9% 3 ML SYG IV (14:30)
[2018-09-27] MEDS: morphine 2 MG INJ IV ×2 (15:55→21:31)
[2018-09-27] MEDS: PANTOPRAZOLE (EC) 40 MG TAB PO (17:29)
[2018-09-27] MEDS: BUMETANIDE 1 MG TAB PO (18:35)
[2018-09-27] MEDS: HYDROCODONE/APAP (5/325) TAB PO (19:24)
[2018-09-27] MEDS: POLYETHYLENE GLYCOL 17 GM PACKET PO (20:38)
[2018-09-27] MEDS: HEPARIN 5,000 UNIT/1 ML VIAL SC (20:40)
[2018-09-28] MEDS: LORAZEPAM 0.5 MG TAB PO (02:35)
[2018-09-28] MEDS: ONDANSETRON 4 MG INJ IV (05:57)
[2018-09-28] MEDS: BUMETANIDE 1 MG TAB PO ×2 (05:57→17:27)
[2018-09-28] MEDS: PANTOPRAZOLE (EC) 40 MG TAB PO ×2 (05:58→17:27)
[2018-09-28] MEDS: morphine 2 MG INJ IV ×2 (06:13→18:26)
[2018-09-28 06:19] LABS: ADD MAN DIFF? NO
[2018-09-28 06:22] LABS: BASOPHILS % 0.1 % (0.0-2.0); HEMATOCRIT 42.8 % (37.0-47.0); HEMOGLOBIN 13.4 g/dl (12.0-16.0); LYMPHOCYTES # 0.9 10^3/ul (0.8-2.9); LYMPHOCYTES % 7.9 % (15.0-51.0); MEAN CORPUSCULAR HEMOGLOBIN 28.3 pg (29.0-33.0); MEAN CORPUSCULAR HGB CONC 31.3 g/dl (32.0-37.0); MEAN CORPUSCULAR VOLUME 90.3 fl (82.0-101.0); MEAN PLATELET VOLUME 11.6 fl (7.4-10.4); MONOCYTES % 9.4 % (0.0-11.0); NEUTROPHIL # 8.9 10^3/ul (1.6-7.5); NEUTROPHILS % 82.1 % (39.0-77.0); PLATELET COUNT 243 10^3/UL (140-415); RED BLOOD COUNT 4.74 10^6/ul (4.20-5.40); RED CELL DISTRIBUTION WIDTH 15.5 % (11.5-14.5)
[2018-09-28 06:22] LABS: WHITE BLOOD COUNT 10.8 10^3/ul (4.8-10.8)
[2018-09-28 06:41] LABS: INR 1.13; PROTIME 14.6 Sec (11.9-14.9); PT RATIO 1.1
[2018-09-28 06:42] LABS: PARTIAL THROMBOPLASTIN TIME 29.2 Sec (23.0-35.0)
[2018-09-28 06:47] LABS: ALANINE AMINOTRANSFERASE 23 IU/L (13-69); ALBUMIN 4.7 g/dl (3.3-4.9); ALBUMIN/GLOBULIN RATIO 1.34; ALKALINE PHOSPHATASE 93 IU/L (42-121); ANION GAP 15 (5-13); ASPARTATE AMINO TRANSFERASE 48 IU/L (15-46); BILIRUBIN,INDIRECT 2.5 mg/dl (0-1.1); BILIRUBIN,TOTAL 2.5 mg/dl (0.2-1.3); BLOOD UREA NITROGEN 45 mg/dl (7-20); CALCIUM 10.1 mg/dl (8.4-10.2); CARBON DIOXIDE 25 mmol/L (21-31); CHLORIDE 97 mmol/L (97-110); CREATININE 2.09 mg/dl (0.44-1.00); Estimated GFR 30 mL/min (>60); GLUCOSE 148 mg/dl (70-220); POTASSIUM 5.1 mmol/L (3.5-5.1); SODIUM 137 mmol/L (135-144); TOTAL PROTEIN 8.2 g/dl (6.1-8.1)
[2018-09-28 06:57] LABS: HEMOGLOBIN A1C 5.1 % (0-5.9)
[2018-09-28] MEDS: ASPIRIN (EC) 81 MG TAB PO (08:41)
[2018-09-28] MEDS: SPIRONOLACTONE 25 MG TAB PO (08:42)
[2018-09-28] MEDS: HEPARIN 5,000 UNIT/1 ML VIAL SC (08:46)
[2018-09-28] MEDS: HYDROCODONE/APAP (5/325) TAB PO (08:48)
[2018-09-28] MEDS: POLYETHYLENE GLYCOL 17 GM PACKET PO (08:48)
[2018-09-28 09:00] LABS: PHOSPHORUS 5.2 mg/dl (2.5-4.9)
[2018-09-28 09:00] LABS: CHOL/HDL RATIO 3.9 RATIO; CHOLESTEROL 184 mg/dl (100-200); HDL CHOLESTEROL 47 mg/dl (37-92); LDL CHOLESTEROL,CALCULATED 113 mg/dl; MAGNESIUM 2.1 mg/dl (1.7-2.5); TRIGLYCERIDES 119 mg/dl (0-149)
[2018-09-28] MEDS: BISACODYL (EC) 5 MG TAB PO (10:43)
[2018-09-28] MEDS: BACLOFEN 10 MG TAB PO (13:00)
[2018-09-28] MEDS: DICYCLOMINE 10 MG CAP PO (14:00)
[2018-09-28] MEDS ORDERED: LUBIPROSTONE 24 MCG CAP PO (21:00)
[2018-09-29] MEDS ORDERED: BUMETANIDE 1 MG TAB PO (09:00)
== END 2018-09-28 20:00 | disposition other institution (70) ==
LOC: E/R 10:18 → PP2 13:07 → TEL 20:57
DX: R10.13 Epigastric pain (principal); I13.0 Hypertensive heart and chronic kidney disease with heart failure and stage 1 through stage 4 chronic kidney disease, or unspecified chronic kidney disease; I50.23 Acute on chronic systolic (congestive) heart failure; N18.3 Chronic kidney disease, stage 3 (moderate); N17.9 Acute kidney failure, unspecified; I27.20 Pulmonary hypertension, unspecified; I42.9 Cardiomyopathy, unspecified; Z95.810 Presence of automatic (implantable) cardiac defibrillator; I25.10 Atherosclerotic heart disease of native coronary artery without angina pectoris; F41.9 Anxiety disorder, unspecified; E66.9 Obesity, unspecified; Z68.33 Body mass index [BMI] 33.0-33.9, adult; E80.4 Gilbert syndrome; K56.41 Fecal impaction; K76.0 Fatty (change of) liver, not elsewhere classified; R25.2 Cramp and spasm; D64.9 Anemia, unspecified; M89.9 Disorder of bone, unspecified; E78.5 Hyperlipidemia, unspecified; Z79.82 Long term (current) use of aspirin
CPT/HCPCS: 36415; 71045; 74176; 76705; 80053; 80061; 83036; 83690; 83735; 84100; 84484; 85025; 85610; 85730; 93005; 96374; 96375; 99217; 99285-25